=== PATIENT | female | born 1960 | race Caucasian/White ===

== ENCOUNTER 2016-12-22 15:03 | Inpatient (IN) | payer MEDICARE, MEDICAID ==
[2016-12-22] MEDS ORDERED: Haloperidol INJ IV/IM* 5 MG/ML AMP IV ONE (15:14)
[2016-12-22] MEDS ORDERED: LORazepam INJ* 2 MG/ML 1 ML VIAL IV PUSH ONE (15:16)
[2016-12-22 15:35] LABS: Hematocrit 47 % (35-47); Hemoglobin 15.5 g/dl (12.0-16.0); Mean Corpuscular HGB Conc 33 g/dl (31-36); Mean Corpuscular Hemoglobin 30 pg (27-31); Mean Corpuscular Volume 92 fL (80-97); Mean Platelet Volume 9 um3 (7.4-10.4); Red Blood Count 5.11 10^6/ul (4.0-5.4); Red Cell Distribution Width 14 % (10.5-15); White Blood Count 8.2 10^3/ul (3.5-10.8)
[2016-12-22 15:41] LABS: Urine Bacteria Absent (Absent); Urine Bilirubin Negative (Negative); Urine Glucose 1+(50 mg/dL) (Negative); Urine Nitrite Negative (Negative)
--- NOTE | 2016-12-22 15:47 | RAD ---
Indication: Confusion, hemorrhage. CT of the brain was performed without IV contrast. Comparison is made with previous exam dated June 16, 2016. Ventricular structures are midline. No midline shift is noted. The extraction spaces are unremarkable. There is no evidence of intracranial mass or hemorrhage. No other high or low density lesions are identified. Mastoid air cells and paranasal sinuses are otherwise unremarkable. IMPRESSION: NO INTRACRANIAL MASS OR HEMORRHAGE IS NOTED.
[2016-12-22 15:50] LABS: Benzodiazepine Urine Screen None Detected (None Detect)
[2016-12-22 15:51] LABS: ALT 7 U/L (7-52); AST 11 U/L (13-39); Albumin 4.4 g/dL (3.2-5.2); Alkaline Phosphatase 66 U/L (34-104); Anion Gap 16 mmol/L (2-11); BUN/Creatinine Ratio 52.6 (8-20); Blood Urea Nitrogen 41 mg/dL (6-24); CO2 Carbon Dioxide 22 mmol/L (22-32); Calcium 10.3 mg/dL (8.6-10.3); Chloride 106 mmol/L (101-111); Creatine Kinase 25 U/L (10-223); EGFR African American 97.9 (>60); EGFR Non-African American 76.1 (>60); Globulin 3.9 g/dL (2-4); Glucose 85 mg/dL (70-100); Magnesium 2.6 mg/dL (1.9-2.7); Potassium 4.2 mmol/L (3.5-5.0); Sodium 144 mmol/L (133-145); Total Protein 8.3 g/dL (6.4-8.9)
[2016-12-22 15:52] LABS: Troponin I 0.01 ng/mL (<0.04)
[2016-12-22 15:58] LABS: Acetaminophen < 15 mcg/mL; Alcohol < 10 mg/dL (<10); Salicylate < 2.50 mg/dL (<30)
--- NOTE | 2016-12-22 16:03 | RAD ---
HISTORY: Altered mental status COMPARISONS: June 26, 2016 VIEWS:1: Single frontal portable view of the chest at 3:40 PM FINDINGS: LINES AND TUBES: None. CARDIOMEDIASTINAL SILHOUETTE: The cardiomediastinal silhouette is normal for portable technique. PLEURA: The costophrenic angles are sharp. No pleural abnormalities are noted. LUNG PARENCHYMA: There is hyperinflation. ABDOMEN: The upper abdomen is clear. There is no subphrenic gas. BONES AND SOFT TISSUES: No bone or soft tissue abnormalities are noted. IMPRESSION: HYPERINFLATION. NO ACTIVE CARDIOPULMONARY DISEASE.
[2016-12-22 16:05] LABS: TSH (Thyroid Stimulating Horm) 1.83 mcIU/mL (0.34-5.60)
[2016-12-22] MEDS: NS 0.9% 1000 ML* 2,000 ML IV ONE ×2 (17:03→17:05)
[2016-12-22] MEDS ORDERED: QUEtiapine TAB* 300 MG PO ONE (21:04)
[2016-12-22] MEDS ORDERED: buPROPion TAB* 100 MG PO ONE (21:06)
--- NOTE | 2016-12-22 21:58 | ED ---
April, DoctorChing, scribed for Kevin Stubbs MD on 12/22/16 at 1531 . Altered Mental Status - HPI Summary HPI Summary: 56 year old female brought to [facility] by EMS after her vp digital marketing social media and crm found her catatonic in bed. She has PMHx of PE and HLD, as well as Panic Disorder, Schizophrenia, and a previous suicide attempt. She currently should be taking Xarelto, Seroquel, Hyroxyzine, Zocor, and Asprin. She is a former smoker. Pt was crying uncontrollably and is a Level 5 Caveat. - History Of Current Complaint Chief Complaint: EDAltMentalStatus Stated Complaint: AMS Time Seen by Provider: 12/22/16 15:10 Hx Obtained From: EMS Hx From Patient Unobtainable Due To: Altered Mental Status - LEVEL 5 CAVEAT Onset/Duration: Unknown - Allergies/Home Medications Allergies/Adverse Reactions: Allergies Allergy/AdvReac Type Severity Reaction Status Date / Time No Known Allergies Allergy Verified 05/09/16 01:57 PMH/Surg Hx/FS Hx/Imm Hx Endocrine/Hematology History: Denies: Hx Anemia, Hx Unexplained Bleeding Cardiovascular History: Reports: Hx Deep Vein Thrombosis - 2000 and 2007 Denies: Hx Aneurysm, Hx Angina, Hx Angioplasty, Hx Auto Implanted Cardiovert Defib, Hx Cardiac Arrest, Hx Cardiomegaly, Hx Congenital Heart Disease, Hx Congestive Heart Failure, Hx Coronary Artery Disease, Hx Embolism, Hx Hypercholesterolemia, Hx Hypotension, Hx Hypertension, Hx Pacemaker/ICD, Hx Peripheral Vascular Disease, Hx Rheumatic Fever, Hx Syncope, Hx Valvular Heart Disease, Other Cardiovascular Problems/Disorders History: Reports: Other Problems/Disorders - History of bladder infection Sensory History: Reports: Hx Contacts or Glasses Denies: Hx Hearing Aid Opthamlomology History: Reports: Hx Contacts or Glasses Neurological History: Reports: Other Neuro Impairments/Disorders - Recently hit head in ED after falling off a stretcher. Psychiatric History: Reports: Hx Panic Disorder, Hx Inpatient Treatment, Hx Community Mental Health Tx, Hx Schizophrenia, Hx Bipolar Disorder, Hx Suicide Attempt - 1982, Hx of Violent Episodes Against Others, Other Psychiatric Issues/ Disorders - SCHIZOAFFECTIVE D/O Denies: Hx Anxiety, Hx Attention Deficit Hyperactivity Disorder, Hx Eating Disorder, Hx Depression, Hx Post Traumatic Stress Disorder, Hx Substance Abuse - Surgical History Surgery Procedure, Year, and Place: TUMOR REMOVED FROM [place] Infectious Disease History: Yes Infectious Disease History: Denies: Traveled Outside the [place] in Last 30 Days - Family History Known Family History: Positive: Other - mood d/o, psychotic d/o. - Social History Lives: Alone Alcohol Use: None Alcohol Amount: States gave up long ago Hx Substance Use: No Substance Use Type: Reports: None Hx Tobacco Use: Yes Smoking Status (MU): Former Smoker Type: Cigarettes Amount Used/How Often: 3 CIGARETTES/DAY Length of Time of Smoking/Using Tobacco: 20YRS Have You Smoked in the Last Year: Yes Review of Systems - ROS Summary Review of Systems Summary: limited due to Level 5 Caveat Negative: Fever All Other Systems Reviewed And Are Negative: No Physical Exam - Summary Physical Exam Summary: LIMITED DUE TO LEVEL 5 CAVEAT General appearance: slight smell of gasoline HEENT: normocephalic, atraumatic, ears and nose without masses or lesions conjunctivae normal, pupils are equal, good gag reflex Neck: redness on right side of the neck, no lesions, symmetric without masses or tracheal deviation, no thyromegaly Chest: normal respiratory effort, clear to auscultation Cardiovascular: decreased skin turgor, good color, warmth, and capillary refill in extremities (2+), no peripheral edema Skin: no visible rashes, lesions, or ulcers, no cyanosis Musculoskeletal: no hip pain Neurological/Psychiatric: Rigid when moving, trouble following commands/ sitting up, non-verbal (crying uncontrollably) Triage Information Reviewed: Yes Vital Signs On Initial Exam: Initial Vitals Temp Pulse Resp BP Pulse Ox 98.1 F 95 16 132/106 95 12/22/16 15:07 12/22/16 15:07 12/22/16 15:07 12/22/16 15:07 12/22/16 15:07 Vital Signs Reviewed: Yes Diagnostics - Vital Signs Vital Signs Temp Pulse Resp BP Pulse Ox 12/22/16 15:09 98.1 F 95 20 132/106 95 12/22/16 15:07 98.1 F 95 16 132/106 95 - Laboratory Lab Results: Lab Results 12/22/16 12/22/16 12/22/16 Range/Units 15:15 15:15 15:15 WBC 8.2 (3.5-10.8) 10^3/ul RBC 5.11 (4.0-5.4) 10^6/ul Hgb 15.5 (12.0-16.0) g/dl Hct 47 (35-47) % MCV 92 (80-97) fL MCH 30 (27-31) pg MCHC 33 (31-36) g/dl RDW 14 (10.5-15) % Plt Count 402 (150-450) 10^3/ul MPV 9 (7.4-10.4) um3 Neut % (Auto) 71.3 (38-83) % Lymph % (Auto) 21.6 L (25-47) % [place] % (Auto) 6.2 (1-9) % Eos % (Auto) 0.1 (0-6) % Baso % (Auto) 0.8 (0-2) % Absolute Neuts (auto) 5.9 (1.5-7.7) 10^3/ul Absolute Lymphs (auto) 1.8 (1.0-4.8) 10^3/ul Absolute Monos (auto) 0.5 (0-0.8) 10^3/ul Absolute Eos (auto) 0 (0-0.6) 10^3/ul Absolute Basos (auto) 0.1 (0-0.2) 10^3/ul Absolute Nucleated RBC 0 10^3/ul Nucleated RBC % 0 INR (Anticoag Therapy) 0.90 (0.89-1.11) Sodium (133-145) mmol/L Potassium (3.5-5.0) mmol/L Chloride (101-111) mmol/L Carbon Dioxide (22-32) mmol/L Anion Gap (2-11) mmol/L BUN (6-24) mg/dL Creatinine (0.51-0.95) mg/dL Est GFR ( Amer) (>60) Est GFR (Non-Af Amer) (>60) BUN/Creatinine Ratio (8-20) Glucose (70-100) mg/dL Lactic Acid (0.5-2.0) mmol/L Calcium (8.6-10.3) mg/dL Magnesium (1.9-2.7) mg/dL Total Bilirubin (0.2-1.0) mg/dL AST (13-39) U/L ALT (7-52) U/L Alkaline Phosphatase (34-104) U/L Total Creatine Kinase (10-223) U/L Troponin I (<0.04) ng/mL Total Protein (6.4-8.9) g/dL Albumin (3.2-5.2) g/dL Globulin (2-4) g/dL Albumin/Globulin Ratio (1-3) TSH (0.34-5.60) mcIU/mL Urine Color Yellow Urine Appearance Clear Urine pH 6.0 (5-9) Ur Specific Parker 1.023 (1.010-1.030) Urine Protein 2+(100 mg/dl) H (Negative) Urine Ketones 2+ H (Negative) Urine Blood 1+ H (Negative) Urine Nitrate Negative (Negative) Urine Bilirubin Negative (Negative) Urine Urobilinogen Negative (Negative) Ur Leukocyte Esterase 1+ H (Negative) Urine WBC (Auto) 2+(11-20/hpf) H (Absent) Urine RBC (Auto) Trace(0-2/hpf) (Absent) Ur Squamous Epith Cells Present H (Absent) Urine Bacteria Absent (Absent) Urine Glucose 1+(50 mg/dl) H (Negative) Salicylates (<30) mg/dL Urine Opiates Screen (None Detect) Acetaminophen mcg/mL Ur Barbiturates Screen (None Detect) Ur Phencyclidine Scrn (None Detect) Ur Amphetamines Screen (None Detect) U Benzodiazepines Scrn (None Detect) Urine Cocaine Screen (None Detect) U Cannabinoids Screen (None Detect) Serum Alcohol (<10) mg/dL 12/22/16 12/22/16 12/22/16 Range/Units 15:15 15:15 15:15 WBC (3.5-10.8) 10^3/ul RBC (4.0-5.4) 10^6/ul Hgb (12.0-16.0) g/dl Hct (35-47) % MCV (80-97) fL MCH (27-31) pg MCHC (31-36) g/dl RDW (10.5-15) % Plt Count (150-450) 10^3/ul MPV (7.4-10.4) um3 Neut % (Auto) (38-83) % Lymph % (Auto) (25-47) % [place] % (Auto) (1-9) % Eos % (Auto) (0-6) % Baso % (Auto) (0-2) % Absolute Neuts (auto) (1.5-7.7) 10^3/ul Absolute Lymphs (auto) (1.0-4.8) 10^3/ul Absolute Monos (auto) (0-0.8) 10^3/ul Absolute Eos (auto) (0-0.6) 10^3/ul Absolute Basos (auto) (0-0.2) 10^3/ul Absolute Nucleated RBC 10^3/ul Nucleated RBC % INR (Anticoag Therapy) (0.89-1.11) Sodium 144 (133-145) mmol/L Potassium 4.2 (3.5-5.0) mmol/L Chloride 106 (101-111) mmol/L Carbon Dioxide 22 (22-32) mmol/L Anion Gap 16 H (2-11) mmol/L BUN 41 H (6-24) mg/dL Creatinine 0.78 (0.51-0.95) mg/dL Est GFR ( Amer) 97.9 (>60) Est GFR (Non-Af Amer) 76.1 (>60) BUN/Creatinine Ratio 52.6 H (8-20) Glucose 85 (70-100) mg/dL Lactic Acid 1.5 (0.5-2.0) mmol/L Calcium 10.3 (8.6-10.3) mg/dL Magnesium 2.6 (1.9-2.7) mg/dL Total Bilirubin 0.60 (0.2-1.0) mg/dL AST 11 L (13-39) U/L ALT 7 (7-52) U/L Alkaline Phosphatase 66 (34-104) U/L Total Creatine Kinase 25 (10-223) U/L Troponin I 0.01 (<0.04) ng/mL Total Protein 8.3 (6.4-8.9) g/dL Albumin 4.4 (3.2-5.2) g/dL Globulin 3.9 (2-4) g/dL Albumin/Globulin Ratio 1.1 (1-3) TSH 1.83 (0.34-5.60) mcIU/mL Urine Color Urine Appearance Urine pH (5-9) Ur Specific Parker (1.010-1.030) Urine Protein (Negative) Urine Ketones (Negative) Urine Blood (Negative) Urine Nitrate (Negative) Urine Bilirubin (Negative) Urine Urobilinogen (Negative) Ur Leukocyte Esterase (Negative) Urine WBC (Auto) (Absent) Urine RBC (Auto) (Absent) Ur Squamous Epith Cells (Absent) Urine Bacteria (Absent) Urine Glucose (Negative) Salicylates < 2.50 (<30) mg/dL Urine Opiates Screen None detected (None Detect) Acetaminophen < 15 mcg/mL Ur Barbiturates Screen None detected (None Detect) Ur Phencyclidine Scrn None detected (None Detect) Ur Amphetamines Screen None detected (None Detect) U Benzodiazepines Scrn None detected (None Detect) Urine Cocaine Screen None detected (None Detect) U Cannabinoids Screen None detected (None Detect) Serum Alcohol < 10 (<10) mg/dL Result Diagrams: 12/22/16 15:15 12/22/16 15:15 Lab Statement: Any lab studies that have been ordered have been reviewed, and results considered in the medical decision making process. - Radiology CXR Radiology Interpretation Completed By: Radiologist - IMPRESSION: HYPERINFLATION. NO ACTIVE CARDIOPULMONARY DISEASE. - CT Brain CT CT Interpretation Completed By: Radiologist - IMPRESSION: NO INTRACRANIAL MASS OR HEMORRHAGE IS NOTED. - EKG 15:08 Cardiac Rate: NL - 86 bpm EKG Rhythm: Sinus Rhythm ST Segment: Non-Specific - non-specific ST changes throughout EKG Interpretation: no atrial flutter, no STEMI Re-Evaluation - Re-Evaluation First Eval Re-Evaluation Time: 17:13 Change: Unchanged Comment: Pt clear for Mental Health Evaluation Altered Mental Statu Course/Dx - Course Course Of Treatment: 21:11 - pt will be in Flex until morning of 12/23/[address] Stubbs ordered evening medications. - Diagnoses Differential Diagnosis/HQI/PQRI: Intracranial Bleed, Medication Reaction, Metabolic Disorder, Postictal State, Other - pneumonia, uti Discharge Diagnoses: Acute psychosis Discharge - Discharge Plan Condition: Stable Disposition: OTHER Discharge Disposition Comment: pending reevaluation by psychiatry in the morning. Referrals: Jorge Marquez MD [Primary Care Provider] - The documentation as recorded by the Doctor meza Tahera accurately reflects the service I personally performed and the decisions made by , Kevin Stubbs MD.
[2016-12-22] MEDS ORDERED: QUEtiapine TAB* 100 MG PO ONE (22:35)
[2016-12-23] MEDS ORDERED: LORazepam INJ* 2 MG/ML 1 ML VIAL IM ONE (16:00)
[2016-12-23] MEDS: Enoxaparin(*) 100 MG/ML SYR SUBCUT SCH (16:20)
[2016-12-23] MEDS ORDERED: LORazepam INJ* 2 MG/ML 1 ML VIAL IM PRN (16:35)
[2016-12-23] MEDS: LORazepam TAB(*) 1 MG PO SCH (16:45)
[2016-12-23] MEDS ORDERED: Acetaminophen TAB* 325 MG ONE (18:49)
[2016-12-23] MEDS ORDERED: Al Hydrox/Mg Hydrox/Simet LIQ* 30 ML UDC ONE (18:50)
[2016-12-23] MEDS ORDERED: Al Hydrox/Mg Hydrox/Simet LIQ* 30 ML UDC PO ONE (20:00)
[2016-12-23] MEDS: Polyethylene Glycol 3350* 17 GM PACKET PO SCH (20:59)
[2016-12-23] MEDS ORDERED: Rivaroxaban TAB(*) 20 MG TAB PO ONE (21:10)
--- NOTE | 2016-12-23 21:49 | HP ---
HISTORY AND PHYSICAL: DATE OF ADMISSION: 12/23/16 IDENTIFYING DATA: Ms. Adorno is a 56-year-old mentally disabled female known to [facility] as well as other hospitals in the area for repeated psychiatric hospitalizations in the contex t of her mental illness with the diagnosis of schizophrenia, schizoaffective disorder and panic diso rder. At this time, the patient was sent to the emergency department by her social media intern who found her in a bed in a catatonic state, not eating or drinking for how long no one knows. In the emerge ncy department she was uncooperative and not responding to all forms of communications. CHIEF COMPLAINT: "Unresponsive to verbal commands and maintaining the same position for extended pe riod of time and not eating or drinking." HISTORY OF PRESENT ILLNESS: Due to patient's uncooperation and inability to answer any question it is difficult to get any history from the patient at this time, however, since she is known to all of us in the area and in this hospital, we will assume that her history remains the same as before. A t this time she is in a catatonic state, needing hospitalization either on psychiatric floor or if n eeded be transferred to medical floor for IV therapy. Since it is impossible for us to get any hist ory from the patient, I will refer everyone to review the previous complete psychiatric evaluation a s well as H and P done by Dr. Manjinder Baumann on 06/17/16. At that time, she had the diagnosis of schi zoaffective disorder depressed type as well as a medical diagnosis of bilateral pulmonary embolus, h istory of DVT, hyperlipidemia, hypokalemia and repeated genitourinary yeast infection. I have revie wed the physical examination done in the emergency department last night, also reviewed all the labs which are unremarkable. The labs include CBC with differential, urinalysis, comprehensive metaboli c profile and urinary toxicology screen. On CBC, her WBC count is 8.2, RBC 5.11, hemoglobin 15.5 wi th a hematocrit of 47, MCV 92 and platelet count 42,000. Differential count is within normal limits . Urinalysis shows a urine protein of +2, urine ketones 2+, urine blood 1+, rest of it is unremarka ble. Comprehensive metabolic profile shows sodium of 144, potassium 4.2, chloride 106, creatinine 0 .78, BUN 41 which is high. Rest of the report are unremarkable. Tox screen shows a salicylate level of less than 2.5, acetaminophen less than 15, serum alcohol less than 10. Urine drug screen negati ve for all street drugs. ASSESSMENT: 1. Catatonia. 2. Schizoaffective disorder. PLAN: 1. To admit the patient on psychiatric unit, and obtain a hospitalist consult to manage her physica l health conditions and especially anticoagulant therapy. For now, I will attempt to give her all h er p.o. medications if she can swallow, otherwise just wait for her to be more capable to swallow th e pills. 2. To treat her catatonia, I will add Ativan 1 mg IM 3 times a day preferably half an hour before e ach meal. If she does not come out of catatonia, I may have to request for a transfer to the medica l floor for IV hydration. She might even need nasogastric feeding in case she continues to withhold her nutritional intake. While on the unit, she will be monitored very closely, preferably put on on e-on-one status. Her code status will remain full. When stable enough psychiatrically, she will re ceive supportive milieu, individual and group therapy. [id number]/[facility] #: [id number]
[2016-12-24] MEDS ORDERED: Nicotine Inhaler* 10 MG AMP INH PRN (00:51)
[2016-12-24] MEDS ORDERED: Al Hydrox/Mg Hydrox/Simet LIQ* 30 ML UDC PO PRN (00:51)
[2016-12-24] MEDS ORDERED: Mouth Piece, Nicotine* 1 EACH CARTRIDGE INH SCH (00:51)
[2016-12-24] MEDS: Enoxaparin(*) 100 MG/ML SYR SUBCUT SCH ×2 (04:34→16:35)
[2016-12-24] MEDS: LORazepam TAB(*) 1 MG PO SCH ×3 (08:35→16:36)
[2016-12-24] MEDS: Polyethylene Glycol 3350* 17 GM PACKET PO SCH ×2 (09:07→20:21)
[2016-12-24] MEDS: Vitamin THERAPEUTIC TAB PO SCH (09:08)
[2016-12-24 12:49] LABS: BUN/Creatinine Ratio 52.9 (8-20); Calcium 9.1 mg/dL (8.6-10.3); EGFR African American 159.9 (>60); EGFR Non-African American 124.3 (>60); Potassium 2.9 mmol/L (3.5-5.0)
[2016-12-24] MEDS: Acetaminophen TAB* 325 MG PO PRN (12:49)
[2016-12-24] MEDS ORDERED: Potassium Chloride LIQUID* 20 MEQ PACKET PO ONE (13:36)
[2016-12-24] MEDS: QUEtiapine TAB* 100 MG PO SCH (20:21)
[2016-12-24] MEDS: Mirtazapine TAB* 15 MG PO SCH (20:21)
[2016-12-24] MEDS: buPROPion TAB* 75 MG PO SCH (20:21)
[2016-12-25] MEDS: Enoxaparin(*) 100 MG/ML SYR SUBCUT SCH ×2 (07:04→16:24)
[2016-12-25] MEDS: Acetaminophen TAB* 325 MG PO PRN (08:18)
[2016-12-25] MEDS: LORazepam TAB(*) 1 MG PO SCH ×3 (08:18→16:25)
[2016-12-25] MEDS: Aspirin Low Dose CHEW TAB* 81 MG PO SCH (08:27)
[2016-12-25] MEDS: Vitamin THERAPEUTIC TAB PO SCH (08:27)
[2016-12-25] MEDS: QUEtiapine TAB* 100 MG PO SCH ×2 (08:27→20:21)
[2016-12-25] MEDS: buPROPion TAB* 75 MG PO SCH ×2 (08:27→20:21)
[2016-12-25] MEDS: Polyethylene Glycol 3350* 17 GM PACKET PO SCH ×2 (08:35→20:21)
[2016-12-25 08:42] LABS: BUN/Creatinine Ratio 35.2 (8-20); Calcium 8.9 mg/dL (8.6-10.3); EGFR African American 149.7 (>60); EGFR Non-African American 116.4 (>60); Potassium 3.4 mmol/L (3.5-5.0)
--- NOTE | 2016-12-25 10:54 | PN ---
Subjective - Subjective Service Type: 48565 Hosp care 15 min low complexity Subjective: Marielena initially had no spontaneous comments. She denied distress, and asked about her prognosis and medicine plan. She said she would take medication, and try to keep her food/liquid intake going. She acknowledged cutting herself on the neck recently. Objective - Appearance Appearance: Well Developed/Nourished Dysmorphic Features: No Hygiene: Normal Grooming: Disheveled - Behavior Psychomotor Activities: Abnormal-Decreased - Attitude and Relatedness Attitude and Relatedness: Withdrawn Eye Contact: Poor - Speech Quality: Unpressured Latencies: Long Quantity: Terse - Mood Patient's Decription of Mood: "Okay" - Affect Observed Affect: Unvariable Affect Consistent with: Dysphoria - Thought Process Patient's Thought Process: Impoverished - blocked Thought Content: No Passive Wish, No Suicidal Planning, No Homicidal Ideation, No Paranoid Ideation - Sensorium Experiencing Hallucinations: No, Sensorium is Clear - Level of Consciousness Level of Consciousness: Lethargic - Impulse Control Impulse Control: Intact - Insight and Judgement Insight and Judgement: Poor Assessment - Assessment Merits Inpatient Hospitalization: For Immediate Safety, For Stabilization, To Initiate Treatment, For Ongoing Evaluation, Pending Safe DC Plan Inpatient DSM-IV Dx: Schizoaffective disorder. Catatonia Clinical Impression: 56-year-old female with historic diagnosis of schizoaffective disorder, personality disorder traits, multiple prior psychiatric hospitalizations, a remote history of suicide attempts, and history of violence. On her last psychiatric hospitalization she had incapacitating lethargy or catatonia and eventually went to a care home. On this occasion concern centered again on apparent catatonia and mutism. Additionally she had scrapes/superfical lacerations on her neck. Continues with some mutism, severe psychomotor retardation. Distress level is low. Medmgt. is with Wellbutrin, Remeron, Quetiapine, and Ativan for catatonia - complication has been her not taking pills. Medical issues (anticoagulation, electrolytes, nutrition) are being evaluated by hospitalist (discussed with Dr. Justin 12/25). Plan - Plan Treatment Plan: Name: MARIELENA LUKE Birthdate: 1960 [id number] Continued Medication Management: Continue Outpt Medication Medications: Current Medications Acetaminophen (Tylenol Tab*) 650 mg PO Q4H PRN PRN Reason: PAIN/HEADACHE Last Admin: 12/25/16 08:18 Dose: 650 mg Al Hydrox/Mg Hydrox/Simethicone (Maalox Plus*) 30 ml PO Q4H PRN PRN Reason: INDIGESTION Aspirin (Aspirin Low Dose Tab*) 81 mg PO DAILY [facility] Last Admin: 12/25/16 08:27 Dose: 81 mg Bupropion HCl (Wellbutrin Tab*) 150 mg PO BID [facility] Last Admin: 12/25/16 08:27 Dose: 150 mg Device (Nicotine Mouth Piece*) 1 each INH .CARTRIDGE [facility] Enoxaparin Sodium (Lovenox(*)) 85 mg SUBCUT Q12H [facility] Last Admin: 12/25/16 07:04 Dose: 85 mg Lorazepam (Ativan Tab(*)) 1 mg PO AC [facility] Last Admin: 12/25/16 08:18 Dose: 1 mg Lorazepam (Ativan Inj*) 1 mg IM AC PRN PRN Reason: IF PT PREFERS Last Admin: 12/24/16 08:21 Dose: 1 mg Mirtazapine (Remeron Tab*) 15 mg PO BEDTIME [facility] Last Admin: 12/24/16 20:21 Dose: 15 mg Multivitamins (Theragran Tab*) 1 tab PO DAILY [facility] Last Admin: 12/25/16 08:27 Dose: 1 tab Nicotine (Nicotine Inhaler*) 10 mg INH Q2H PRN PRN Reason: CRAVING Polyethylene Glycol/Electrolytes (Miralax*) 17 gm PO Q12H [facility] Last Admin: 12/25/16 08:35 Dose: 17 gm Quetiapine Fumarate (Seroquel Tab*) 400 mg PO BID [facility] Last Admin: 12/25/16 08:27 Dose: 400 mg - Discharge Plan Discharge Plan: Outpatient Follow Up
[2016-12-25] MEDS ORDERED: Benzocaine/Menthol LOZ* 1 LOZENGE MT PRN (11:43)
[2016-12-25] MEDS ORDERED: Potassium Chlor TAB* 20 MEQ TAB.ER PO ONE (11:43)
[2016-12-25] MEDS: Nicotine GUM* 2 MG PO PRN (12:06)
[2016-12-25] MEDS: Mirtazapine TAB* 15 MG PO SCH (20:21)
--- NOTE | 2016-12-25 21:22 | CONS ---
CONSULTATION REPORT: DATE OF CONSULT: 12/25/16 PRIMARY CARE PROVIDER: Dr. Marquez. REQUESTING PHYSICIAN FOR CONSULTATION: Ruy Macias MD ATTENDING PHYSICIAN WHILE IN THE HOSPITAL: Spenser Justin MD (report being dictated by Robert Muro NP). REASON FOR MEDICAL CONSULTATION: Medical management of comorbid medical conditions. HISTORY OF PRESENT ILLNESS: I refer you to Dr. Daniels's H and P dictated on the for further details. In short, Ms. Adorno presented to the behavioral services unit for unresponsive to verbal commands and maintaining the same position for an extended period of time without eating or drinking. The patient was admitted for catatonic state and was admitted for stabilization. She does carry history though of recent diagnosis in June of pulmonary embolism. In addition to this, has a history of DVT, hyperlipidemia. She has a history of schizoaffective disorder and depression and it was also noted that she was hypokalemic and because of these findings, we were asked to evaluate in consult. The is evaluated now in the behavioral services unit. She says she is feeling well. She is notably withdrawn. She denies any chest pain or shortness of breath. She says that her mouth feels dry. She denies any abdominal discomfort or any leg pain or calf pain at this point and denies having any chest discomfort. She does state that sometime it hurts to take a deep breath, but she attributes it to the fact that she was given sternal rubs to try to awaken her. She other than this complaint denying any further complaints but because of the history of the PEs and the fact that she does have a history of DVT and she was hypokalemic, we were asked to evaluate in consult. PAST MEDICAL HISTORY: Significant for: 1. PE. 2. DVT. 3. Hyperlipidemia. 4. Schizoaffective disorder. 5. Depression. PAST SURGICAL HISTORY: Not obtained at this time. CURRENT MEDICATIONS: Include: 1. Tylenol 650 mg p.o. every 4 hours as needed. 2. Maalox 30 cc p.o. every 4 hours as needed. 3. Aspirin 81 mg daily. 4. Wellbutrin 150 mg p.o. b.i.d. 5. Nicotine inhaler 10 mg inhaler every 2 hours as needed. 6. Multivitamin 1 tablet daily. 7. Remeron 15 mg at bedtime. 8. Ativan 1 mg p.o. before meals. 9. Lovenox 85 mg subcu q.12 hours. 10. Seroquel 400 mg p.o. b.i.d. 11. MiraLAX 17 g p.o. every 12 hours as needed. FAMILY HISTORY: Reviewed and essentially noncontributory. SOCIAL HISTORY: There was a history of smoking and alcohol use in the past. Her surrogate decision maker is her brother, Bernardo. REVIEW OF SYSTEMS: There is no documented fever. She denied having any significant weight change. There was no double vision. She denies having any ear discharge. There was no rhinorrhea. No sore throat. No thyroid enlargement. She denies having any chest pain with the exception when she takes a deep breath. No orthopnea. No nocturnal dyspnea. No abdominal pain. No nausea, no vomiting. No dysuria, no frequency. No seizure. No loss of consciousness. No pruritus and no skin ulceration. Review of 14 systems completed, all others negative. PHYSICAL EXAM: Reveals vital signs, blood pressure 105/70 with a pulse of 88, respirations 16, O2 sat 99%, and temperature was 97.0. General: At this time, Ms. Adorno is a 56-year-old female patient. She is sitting in the psychiatric milieu. She does not appear to be in any acute distress. HEENT: Head is atraumatic, normocephalic. Eyes: EOMs are intact. Sclerae anicteric and not pale. Neck: Supple. Throat: Oral mucosa appears to be moist. No oropharyngeal erythema. Heart: Sounds S1, S2. Regular rate and rhythm. No murmurs, rubs, or gallops. Lungs: Clear to auscultation. Abdomen: Soft, flat. Bowel sounds present. Extremities: Pulses 2+ throughout. She had no peripheral edema. Neurologically, she is awake and she is alert. Currently, she is withdrawn at times, but she is awake, alert and oriented x3. Skin: Grossly intact. DIAGNOSTIC STUDIES/ LAB DATA: WBC of 8.2, RBC of 5.11, hemoglobin 15.5, hematocrit 47, platelet count of 402. INR 0.90. Sodium 136, potassium 3.4, chloride of 104, bicarb 29, BUN 19, creatinine 0.54. Urine showed 2+ protein, 2 + ketones, 1+ blood, 1+ leukocyte esterase, 2+ wbc. Toxicology was negative. Microbiology report for urine was negative. She had CTA of the chest done in June 2016, which again revealed bilateral pulmonary arterial filling defects consistent with large bilateral pulmonary emboli. Old medical records were reviewed. ASSESSMENT AND PLAN: Ms. Adorno is a 56-year-old female patient that comes to the [facility] for catatonic state. Hospitalist service was asked to evaluate in consult. Recommendations at this point are: 1. Schizoaffective disorder with catatonia. I will defer the management of this to Dr. Macias and his team. 2. Hypokalemia. She was given supplementation and she was 2.9, she is now 3.4. We will continue with another 60 today of mEq. We will repeat her potassium in the morning. 3. History of pulmonary embolism. In discussion with the patient, she said she has not been taking her Xarelto for sometime. She is currently not exhibiting any sign of shortness of breath. She is not hypoxic on room air. I do not see any warranting of re-CTA'ing her chest. I do agree with continuing Lovenox 85 mg subcu q.12 hours and then possibly at discharge sending her back on Xarelto, but again we would need to assure that she would be taking this appropriately. 4. History of tobacco abuse. She did request nicotine gum, which I have given. 5. DVT prophylaxis. She is on therapeutic Lovenox. 6. Hyperlipidemia. She can follow with her primary. 7. Fluids, electrolytes and nutrition. I would recommend a regular diet. We will go ahead and replace potassium and then I would recommend trying to give the patient Boost t.i.d. minimally and then regular diet on top of this. 8. Code status. Full code. TIME SPENT: Time spent on the consult was 60 minutes; greater than half the time was spent [id number] with the patient going over the plan of care with the patient and the other half time was spent implementing the plan of care. I did discuss the plan of care with my attending, Dr. Justin. He is in agreement. ROBERT MURO NP CC: Ruy Macias MD; Dr. Marquez [id number][place] [place] [id number] [facility]
[2016-12-26] MEDS: Enoxaparin(*) 100 MG/ML SYR SUBCUT SCH ×2 (03:59→15:54)
[2016-12-26 07:23] LABS: BUN/Creatinine Ratio 29.4 (8-20); Calcium 8.8 mg/dL (8.6-10.3); EGFR African American 159.9 (>60); EGFR Non-African American 124.3 (>60); Potassium 4.4 mmol/L (3.5-5.0)
[2016-12-26] MEDS: LORazepam TAB(*) 1 MG PO SCH ×2 (07:46→11:54)
[2016-12-26] MEDS: Polyethylene Glycol 3350* 17 GM PACKET PO SCH ×2 (09:34→21:19)
[2016-12-26] MEDS: Aspirin Low Dose CHEW TAB* 81 MG PO SCH (09:34)
[2016-12-26] MEDS: Vitamin THERAPEUTIC TAB PO SCH (09:35)
[2016-12-26] MEDS: QUEtiapine TAB* 100 MG PO SCH ×2 (09:35→21:19)
[2016-12-26] MEDS: buPROPion TAB* 75 MG PO SCH ×2 (09:36→21:19)
[2016-12-26] MEDS: Nicotine GUM* 2 MG PO PRN ×2 (09:41→17:54)
[2016-12-26] MEDS: Acetaminophen TAB* 325 MG PO PRN (11:58)
--- NOTE | 2016-12-26 13:47 | PN ---
Subjective - Subjective Service Type: 18765 Hosp care 15 min low complexity Subjective: Ninoska appeared to be sleeping. Arousal took a little jiggle to her shoulder and repeated greetings. She was very lethargic, moaned a one word response. Objective - Appearance Appearance: Well Developed/Nourished Hygiene: Normal Grooming: Disheveled - Behavior Psychomotor Activities: Abnormal-Decreased - Attitude and Relatedness Attitude and Relatedness: Minimally Cooperative Eye Contact: Poor - Speech Quantity: Terse - Affect Observed Affect: Unvariable - Thought Process Patient's Thought Process: Impoverished - Level of Consciousness Level of Consciousness: Lethargic - Impulse Control Impulse Control: Intact - Insight and Judgement Insight and Judgement: Poor Assessment - Assessment Merits Inpatient Hospitalization: For Immediate Safety, To Initiate Treatment, For Ongoing Evaluation, For Discharge Planning, Pending Safe DC Plan Inpatient DSM-IV Dx: Schizoaffective disorder. Catatonia Clinical Impression: 56-year-old female with historic diagnosis of schizoaffective disorder, personality disorder traits, multiple prior psychiatric hospitalizations, a remote history of suicide attempts, and history of violence. On her last psychiatric hospitalization she had incapacitating lethargy or catatonia and eventually went to a [facility]. On this occasion concern centered again on apparent catatonia and mutism. Additionally she had scrapes/superfical lacerations on her neck. Has had mutism, severe psychomotor retardation. Distress level is low. Medmgt. is with Wellbutrin, Remeron, Quetiapine, and Ativan for catatonia - Today she appears sedated - may be from addition of Ativan will hold it, and reduce Seroquel dosing for now. Medical issues (anticoagulation, electrolytes, nutrition) are being evaluated by hospitalist (discussed with Dr. Justin 12/25). Plan - Plan Treatment Plan: Name: NINOSKA LUKE Birthdate: 1960 [id number] Continued Medication Management: Different Medication Medications: Current Medications Acetaminophen (Tylenol Tab*) 650 mg PO Q4H PRN PRN Reason: PAIN/HEADACHE Last Admin: 12/26/16 11:58 Dose: 650 mg Al Hydrox/Mg Hydrox/Simethicone (Maalox Plus*) 30 ml PO Q4H PRN PRN Reason: INDIGESTION Aspirin (Aspirin Low Dose Tab*) 81 mg PO DAILY [facility] Last Admin: 12/26/16 09:34 Dose: 81 mg Bupropion HCl (Wellbutrin Tab*) 150 mg PO BID [facility] Last Admin: 12/26/16 09:36 Dose: 150 mg Device (Nicotine Mouth Piece*) 1 each INH .CARTRIDGE [facility] Enoxaparin Sodium (Lovenox(*)) 85 mg SUBCUT Q12H [facility] Last Admin: 12/26/16 03:59 Dose: 85 mg Mirtazapine (Remeron Tab*) 15 mg PO BEDTIME [facility] Last Admin: 12/25/16 20:21 Dose: 15 mg Multivitamins (Theragran Tab*) 1 tab PO DAILY [facility] Last Admin: 12/26/16 09:35 Dose: 1 tab Nicotine (Nicotine Inhaler*) 10 mg INH Q2H PRN PRN Reason: CRAVING Nicotine Polacrilex (Nicotine Gum*) 2 mg PO Q2H PRN PRN Reason: CRAVING Last Admin: 12/26/16 09:41 Dose: 2 mg Polyethylene Glycol/Electrolytes (Miralax*) 17 gm PO Q12H [facility] Last Admin: 12/26/16 09:34 Dose: 17 gm Quetiapine Fumarate (Seroquel Tab*) 100 mg PO BID [facility] Throat Lozenges (Chloraseptic Sharri*) 1 sharri MT Q6H PRN PRN Reason: SORE THROAT - Discharge Plan Discharge Plan: Consider Longer Term Tx
--- NOTE | 2016-12-26 16:00 | PN ---
Subjective Date of Service: 12/26/16 Interval History: Patient was not examined. The nurses notes, labs and patients chart was reviewed. Objective Active Medications: Acetaminophen (Tylenol Tab*) 650 mg PO Q4H PRN PRN Reason: PAIN/HEADACHE Last Admin: 12/26/16 11:58 Dose: 650 mg Al Hydrox/Mg Hydrox/Simethicone (Maalox Plus*) 30 ml PO Q4H PRN PRN Reason: INDIGESTION Aspirin (Aspirin Low Dose Tab*) 81 mg PO DAILY [facility] Last Admin: 12/26/16 09:34 Dose: 81 mg Bupropion HCl (Wellbutrin Tab*) 150 mg PO BID [facility] Last Admin: 12/26/16 09:36 Dose: 150 mg Device (Nicotine Mouth Piece*) 1 each INH .CARTRIDGE ON LICENSE [facility] Enoxaparin Sodium (Lovenox(*)) 85 mg SUBCUT Q12H [facility] Last Admin: 12/26/16 03:59 Dose: 85 mg Mirtazapine (Remeron Tab*) 15 mg PO BEDTIME [facility] Last Admin: 12/25/16 20:21 Dose: 15 mg Multivitamins (Theragran Tab*) 1 tab PO DAILY [facility] Last Admin: 12/26/16 09:35 Dose: 1 tab Nicotine (Nicotine Inhaler*) 10 mg INH Q2H PRN PRN Reason: CRAVING Nicotine Polacrilex (Nicotine Gum*) 2 mg PO Q2H PRN PRN Reason: CRAVING Last Admin: 12/26/16 09:41 Dose: 2 mg Polyethylene Glycol/Electrolytes (Miralax*) 17 gm PO Q12H [facility] Last Admin: 12/26/16 09:34 Dose: 17 gm Quetiapine Fumarate (Seroquel Tab*) 100 mg PO BID [facility] Throat Lozenges (Chloraseptic Sharri*) 1 sharri MT Q6H PRN PRN Reason: SORE THROAT Vital Signs 12/25/16 12/25/16 12/26/16 16:25 18:25 07:46 Temperature Pulse Rate Respiratory 16 16 16 Rate Blood Pressure (mmHg) O2 Sat by Pulse Oximetry 12/26/16 12/26/16 12/26/16 09:46 11:54 13:54 Temperature Pulse Rate Respiratory 16 16 16 Rate Blood Pressure (mmHg) O2 Sat by Pulse Oximetry 12/26/16 12/26/16 14:37 15:22 Temperature 97.5 F Pulse Rate 99 Respiratory 16 16 Rate Blood Pressure 87/57 (mmHg) O2 Sat by Pulse 95 Oximetry Result Diagrams: 12/22/16 15:15 12/26/16 06:44 Additional Lab and Data: Lab Results 12/22/16 12/22/16 12/22/16 Range/Units 15:15 15:15 15:15 WBC 8.2 (3.5-10.8) 10^3/ul RBC 5.11 (4.0-5.4) 10^6/ul Hgb 15.5 (12.0-16.0) g/dl Hct 47 (35-47) % MCV 92 (80-97) fL MCH 30 (27-31) pg MCHC 33 (31-36) g/dl RDW 14 (10.5-15) % Plt Count 402 (150-450) 10^3/ul MPV 9 (7.4-10.4) um3 Neut % (Auto) 71.3 (38-83) % Lymph % (Auto) 21.6 L (25-47) % [place] % (Auto) 6.2 (1-9) % Eos % (Auto) 0.1 (0-6) % Baso % (Auto) 0.8 (0-2) % Absolute Neuts (auto) 5.9 (1.5-7.7) 10^3/ul Absolute Lymphs (auto) 1.8 (1.0-4.8) 10^3/ul Absolute Monos (auto) 0.5 (0-0.8) 10^3/ul Absolute Eos (auto) 0 (0-0.6) 10^3/ul Absolute Basos (auto) 0.1 (0-0.2) 10^3/ul Absolute Nucleated RBC 0 10^3/ul Nucleated RBC % 0 INR (Anticoag Therapy) 0.90 (0.89-1.11) Sodium (133-145) mmol/L Potassium (3.5-5.0) mmol/L Chloride (101-111) mmol/L Carbon Dioxide (22-32) mmol/L Anion Gap (2-11) mmol/L BUN (6-24) mg/dL Creatinine (0.51-0.95) mg/dL Est GFR ( Amer) (>60) Est GFR (Non-Af Amer) (>60) BUN/Creatinine Ratio (8-20) Glucose (70-100) mg/dL Lactic Acid (0.5-2.0) mmol/L Calcium (8.6-10.3) mg/dL Magnesium (1.9-2.7) mg/dL Total Bilirubin (0.2-1.0) mg/dL AST (13-39) U/L ALT (7-52) U/L Alkaline Phosphatase (34-104) U/L Total Creatine Kinase (10-223) U/L Troponin I (<0.04) ng/mL Total Protein (6.4-8.9) g/dL Albumin (3.2-5.2) g/dL Globulin (2-4) g/dL Albumin/Globulin Ratio (1-3) TSH (0.34-5.60) mcIU/mL Urine Color Yellow Urine Appearance Clear Urine pH 6.0 (5-9) Ur Specific [place] 1.023 (1.010-1.030) Urine Protein 2+(100 mg/dl) H (Negative) Urine Ketones 2+ H (Negative) Urine Blood 1+ H (Negative) Urine Nitrate Negative (Negative) Urine Bilirubin Negative (Negative) Urine Urobilinogen Negative (Negative) Ur Leukocyte Esterase 1+ H (Negative) Urine WBC (Auto) 2+(11-20/hpf) H (Absent) Urine RBC (Auto) Trace(0-2/hpf) (Absent) Ur Squamous Epith Cells Present H (Absent) Urine Bacteria Absent (Absent) Urine Glucose 1+(50 mg/dl) H (Negative) Salicylates (<30) mg/dL Urine Opiates Screen (None Detect) Acetaminophen mcg/mL Ur Barbiturates Screen (None Detect) Ur Phencyclidine Scrn (None Detect) Ur Amphetamines Screen (None Detect) U Benzodiazepines Scrn (None Detect) Urine Cocaine Screen (None Detect) U Cannabinoids Screen (None Detect) Serum Alcohol (<10) mg/dL 12/22/16 12/22/16 12/22/16 Range/Units 15:15 15:15 15:15 WBC (3.5-10.8) 10^3/ul RBC (4.0-5.4) 10^6/ul Hgb (12.0-16.0) g/dl Hct (35-47) % MCV (80-97) fL MCH (27-31) pg MCHC (31-36) g/dl RDW (10.5-15) % Plt Count (150-450) 10^3/ul MPV (7.4-10.4) um3 Neut % (Auto) (38-83) % Lymph % (Auto) (25-47) % [place] % (Auto) (1-9) % Eos % (Auto) (0-6) % Baso % (Auto) (0-2) % Absolute Neuts (auto) (1.5-7.7) 10^3/ul Absolute Lymphs (auto) (1.0-4.8) 10^3/ul Absolute Monos (auto) (0-0.8) 10^3/ul Absolute Eos (auto) (0-0.6) 10^3/ul Absolute Basos (auto) (0-0.2) 10^3/ul Absolute Nucleated RBC 10^3/ul Nucleated RBC % INR (Anticoag Therapy) (0.89-1.11) Sodium 144 (133-145) mmol/L Potassium 4.2 (3.5-5.0) mmol/L Chloride 106 (101-111) mmol/L Carbon Dioxide 22 (22-32) mmol/L Anion Gap 16 H (2-11) mmol/L BUN 41 H (6-24) mg/dL Creatinine 0.78 (0.51-0.95) mg/dL Est GFR ( Amer) 97.9 (>60) Est GFR (Non-Af Amer) 76.1 (>60) BUN/Creatinine Ratio 52.6 H (8-20) Glucose 85 (70-100) mg/dL Lactic Acid 1.5 (0.5-2.0) mmol/L Calcium 10.3 (8.6-10.3) mg/dL Magnesium 2.6 (1.9-2.7) mg/dL Total Bilirubin 0.60 (0.2-1.0) mg/dL AST 11 L (13-39) U/L ALT 7 (7-52) U/L Alkaline Phosphatase 66 (34-104) U/L Total Creatine Kinase 25 (10-223) U/L Troponin I 0.01 (<0.04) ng/mL Total Protein 8.3 (6.4-8.9) g/dL Albumin 4.4 (3.2-5.2) g/dL Globulin 3.9 (2-4) g/dL Albumin/Globulin Ratio 1.1 (1-3) TSH 1.83 (0.34-5.60) mcIU/mL Urine Color Urine Appearance Urine pH (5-9) Ur Specific [place] (1.010-1.030) Urine Protein (Negative) Urine Ketones (Negative) Urine Blood (Negative) Urine Nitrate (Negative) Urine Bilirubin (Negative) Urine Urobilinogen (Negative) Ur Leukocyte Esterase (Negative) Urine WBC (Auto) (Absent) Urine RBC (Auto) (Absent) Ur Squamous Epith Cells (Absent) Urine Bacteria (Absent) Urine Glucose (Negative) Salicylates < 2.50 (<30) mg/dL Urine Opiates Screen None detected (None Detect) Acetaminophen < 15 mcg/mL Ur Barbiturates Screen None detected (None Detect) Ur Phencyclidine Scrn None detected (None Detect) Ur Amphetamines Screen None detected (None Detect) U Benzodiazepines Scrn None detected (None Detect) Urine Cocaine Screen None detected (None Detect) U Cannabinoids Screen None detected (None Detect) Serum Alcohol < 10 (<10) mg/dL Assess/Plan/Problems-Billing Assessment: 56 yo female with PMH of DVT, PEs, HLD and schizoaffective disorder who was admitted to the [facility] on 12/23 for catatonic state. Hospital Medicne was asked to evaluate for hx of PEs and hypokalemia - Patient Problems (1) Schizoaffective disorder, bipolar type Comment: Dispo per psych (2) Electrolyte abnormality Comment: - Resolved - recheck in am (3) Pulmonary emboli Comment: Bilateral PE on CTA dx 06/2016 in which she was started on xarelto. pt discontinued xarelto as outpt. TTE in 06/2016 showing no cor pulmonale - Plan to continue lovenox BID with recommednation for patient to go back on xarelto at discharge if she can take appropriately. (4) DVT prophylaxis Comment: Lovenox BID Status and Disposition: Inpatient in [facility]HU. Hospital Medicine will follow peripherally.
[2016-12-26] MEDS: Mirtazapine TAB* 15 MG PO SCH (21:19)
[2016-12-27] MEDS: Enoxaparin(*) 100 MG/ML SYR SUBCUT SCH ×2 (04:55→16:00)
[2016-12-27 07:22] LABS: EGFR African American 127.6 (>60); EGFR Non-African American 99.2 (>60)
[2016-12-27] MEDS: Polyethylene Glycol 3350* 17 GM PACKET PO SCH ×2 (10:41→21:09)
[2016-12-27] MEDS: Aspirin Low Dose CHEW TAB* 81 MG PO SCH (10:41)
[2016-12-27] MEDS: Vitamin THERAPEUTIC TAB PO SCH (10:41)
[2016-12-27] MEDS: QUEtiapine TAB* 100 MG PO SCH ×2 (10:50→21:09)
[2016-12-27] MEDS: buPROPion TAB* 75 MG PO SCH ×2 (10:50→21:09)
--- NOTE | 2016-12-27 10:57 | PN ---
Subjective - Subjective Service Type: 41933 Hosp care 15 min low complexity Subjective: Marielena was more alert, spoke more, and was actively engaged today. She said her neck scrapes were not in an effort to harm herself. She expressed a sincere preference for going home, with nursing support, rather than getting placed in SNF again. Objective - Appearance Appearance: Well Developed/Nourished Hygiene: Normal Grooming: Fairly Well Kept - Behavior Psychomotor Activities: Abnormal-Decreased - Attitude and Relatedness Attitude and Relatedness: Superficially Cooperative Eye Contact: Good - Speech Quality: Unpressured Latencies: Normal Quantity: Terse - Mood Patient's Decription of Mood: "Okay" - Affect Observed Affect: Non-labile Affect Consistent with: Dysphoria - Thought Process Patient's Thought Process: Coherent, Impoverished Thought Content: No Passive Wish, No Suicidal Planning, No Homicidal Ideation, No Paranoid Ideation - Sensorium Experiencing Hallucinations: No, Sensorium is Clear - Level of Consciousness Level of Consciousness: Alert - Impulse Control Impulse Control: Intact - Insight and Judgement Insight and Judgement: Poor Assessment - Assessment Merits Inpatient Hospitalization: For Stabilization, To Initiate Treatment, For Ongoing Evaluation, Consolidate Improvements, For Discharge Planning, Pending Safe DC Plan Inpatient DSM-IV Dx: Schizoaffective disorder. Catatonia Clinical Impression: 56-year-old female with historic diagnosis of schizoaffective disorder, personality disorder traits, multiple prior psychiatric hospitalizations, a remote history of suicide attempts, and history of violence. On her last psychiatric hospitalization she had incapacitating lethargy or catatonia and eventually went to a correction. On this occasion concern centered again on apparent catatonia and mutism. Additionally she had scrapes/superfical lacerations on her neck, which she later acknowledged was self inflicted. 1. Symptoms: Improving - more spontaneous and alert. Issue has been mutism, severe psychomotor retardation. Distress level remains low. She denied intent to harm self with her minor neck wounds. 2. Medication management: with Wellbutrin, Remeron, Quetiapine. Initially we provided Ativan for catatonia - but Marielena appeared quite sedated with it. Seroquel was reduced, Ativan stopped - she appears better. 3. Medical issues (anticoagulation, electrolytes, nutrition): have been evaluated by hospitalist - Marielena is stable. 4. Disposition planning - pt. would like to go home. For PT/OT assessments. Plan - Plan Treatment Plan: Name: MARIELENA LUKE Birthdate: 1960 [id number] Continued Medication Management: Continue Outpt Medication Medications: Current Medications Acetaminophen (Tylenol Tab*) 650 mg PO Q4H PRN PRN Reason: PAIN/HEADACHE Last Admin: 12/26/16 11:58 Dose: 650 mg Al Hydrox/Mg Hydrox/Simethicone (Maalox Plus*) 30 ml PO Q4H PRN PRN Reason: INDIGESTION Aspirin (Aspirin Low Dose Tab*) 81 mg PO DAILY [facility] Last Admin: 12/27/16 10:41 Dose: 81 mg Bupropion HCl (Wellbutrin Tab*) 150 mg PO BID [facility] Last Admin: 12/27/16 10:50 Dose: Not Given Device (Nicotine Mouth Piece*) 1 each INH .CARTRIDGE [facility] Enoxaparin Sodium (Lovenox(*)) 85 mg SUBCUT Q12H [facility] Last Admin: 12/27/16 04:55 Dose: 85 mg Mirtazapine (Remeron Tab*) 15 mg PO BEDTIME [facility] Last Admin: 12/26/16 21:19 Dose: 15 mg Multivitamins (Theragran Tab*) 1 tab PO DAILY [facility] Last Admin: 12/27/16 10:41 Dose: 1 tab Nicotine (Nicotine Inhaler*) 10 mg INH Q2H PRN PRN Reason: CRAVING Nicotine Polacrilex (Nicotine Gum*) 2 mg PO Q2H PRN PRN Reason: CRAVING Last Admin: 12/26/16 17:54 Dose: 2 mg Polyethylene Glycol/Electrolytes (Miralax*) 17 gm PO Q12H [facility] Last Admin: 12/27/16 10:41 Dose: 17 gm Quetiapine Fumarate (Seroquel Tab*) 100 mg PO BID [facility] Last Admin: 12/27/16 10:50 Dose: 100 mg Throat Lozenges (Chloraseptic [place]*) 1 [place] MT Q6H PRN PRN Reason: SORE THROAT - Discharge Plan Discharge Plan: Outpatient Follow Up
[2016-12-27] MEDS: Mirtazapine TAB* 15 MG PO SCH (21:09)
[2016-12-28] MEDS: Enoxaparin(*) 100 MG/ML SYR SUBCUT SCH ×2 (04:55→15:56)
[2016-12-28] MEDS: Aspirin Low Dose CHEW TAB* 81 MG PO SCH (10:47)
[2016-12-28] MEDS: Polyethylene Glycol 3350* 17 GM PACKET PO SCH ×2 (10:48→21:44)
[2016-12-28] MEDS: Vitamin THERAPEUTIC TAB PO SCH (10:48)
[2016-12-28] MEDS: buPROPion TAB* 75 MG PO SCH ×2 (10:48→21:44)
[2016-12-28] MEDS: QUEtiapine TAB* 100 MG PO SCH ×2 (10:48→21:44)
--- NOTE | 2016-12-28 11:38 | PN ---
Subjective - Subjective Service Type: 98096 Hosp care 15 min low complexity Subjective: Marielena appeared to be sleeping, did not arouse to voice or gentle touch. PT/OT could not engage her either. Objective - Appearance Appearance: Well Developed/Nourished Hygiene: Normal Grooming: Fairly Well Kept - Behavior Psychomotor Activities: Abnormal-Decreased - eylids are twitching bilaterally Exhibits Abnormal Movement: Yes - Attitude and Relatedness Attitude and Relatedness: uncooperative Assessment - Assessment Inpatient DSM-IV Dx: Schizoaffective disorder. Catatonia Clinical Impression: 56-year-old female with historic diagnosis of schizoaffective disorder, personality disorder traits, multiple prior psychiatric hospitalizations, a remote history of suicide attempts, and history of violence. On her last psychiatric hospitalization she had incapacitating lethargy or catatonia and eventually went to a halfway. On this occasion concern centered again on apparent catatonia and mutism. Additionally she had scrapes/superfical lacerations on her neck, which she later acknowledged was self inflicted. 1. Symptoms: Intermittent. Had been improving - appeared more spontaneous and alert. Issue continues with periodic mutism, severe psychomotor retardation, unresponsiveness. Distress level has been low. She denied intent to harm self with her minor neck wounds with which she presented. 2. Medication management: with Wellbutrin, Remeron, Quetiapine. Initially we provided Ativan for catatonia - but Marielena appeared quite sedated with it. Seroquel was reduced, Ativan stopped - she appears better. 3. Medical issues (anticoagulation, electrolytes, nutrition): have been evaluated by hospitalist - Marielena is stable. Given mental status changes and eye twitching, could consider partial complex seizures - EEG ordered today 12/28. 4. Disposition planning - pt. would like to go home. For PT/OT assessments. Plan - Plan Treatment Plan: Name: MARIELENA LUKE Birthdate: 1960 [id number] Continued Medication Management: Different Medication Medications: Current Medications Acetaminophen (Tylenol Tab*) 650 mg PO Q4H PRN PRN Reason: PAIN/HEADACHE Last Admin: 12/26/16 11:58 Dose: 650 mg Al Hydrox/Mg Hydrox/Simethicone (Maalox Plus*) 30 ml PO Q4H PRN PRN Reason: INDIGESTION Aspirin (Aspirin Low Dose Tab*) 81 mg PO DAILY [facility] Last Admin: 12/28/16 10:47 Dose: Not Given Bupropion HCl (Wellbutrin Tab*) 150 mg PO BID [facility] Last Admin: 12/28/16 10:48 Dose: Not Given Device (Nicotine Mouth Piece*) 1 each INH .CARTRIDGE [facility] Enoxaparin Sodium (Lovenox(*)) 85 mg SUBCUT Q12H [facility] Last Admin: 12/28/16 04:55 Dose: 85 mg Mirtazapine (Remeron Tab*) 15 mg PO BEDTIME [facility] Last Admin: 12/27/16 21:09 Dose: 15 mg Multivitamins (Theragran Tab*) 1 tab PO DAILY [facility] Last Admin: 12/28/16 10:48 Dose: Not Given Nicotine (Nicotine Inhaler*) 10 mg INH Q2H PRN PRN Reason: CRAVING Nicotine Polacrilex (Nicotine Gum*) 2 mg PO Q2H PRN PRN Reason: CRAVING Last Admin: 12/26/16 17:54 Dose: 2 mg Polyethylene Glycol/Electrolytes (Miralax*) 17 gm PO Q12H [facility] Last Admin: 12/28/16 10:48 Dose: Not Given Quetiapine Fumarate (Seroquel Tab*) 100 mg PO BID [facility] Last Admin: 12/28/16 10:48 Dose: Not Given Throat Lozenges (Chloraseptic Constanza*) 1 contsanza MT Q6H PRN PRN Reason: SORE THROAT - Discharge Plan Discharge Plan: Outpatient Follow Up
[2016-12-28 20:28] LABS: Hematocrit 39 % (35-47); Hemoglobin 12.9 g/dl (12.0-16.0); Mean Platelet Volume 9 um3 (7.4-10.4)
[2016-12-28 20:32] LABS: Comments Flag Yes
[2016-12-28] MEDS: Mirtazapine TAB* 15 MG PO SCH (21:44)
--- NOTE | 2016-12-29 02:19 | EEG ---
ELECTROENCEPHALOGRAPHY: DATE OF STUDY: 12/28/16 LOCATION: The patient is an inpatient on [address] [place] [address]. REQUESTING PHYSICIAN: Dr. Macias. HISTORY: This is a 56-year-old female with a history of catatonia and schizoaffective disorder. She was admitted on 12/23/16, and on admission, she was unresponsive to verbal commands and maintaining the same position for extended periods of time. EEG is requested for these mental status changes. EEG requested to evaluate for epileptiform abnormalities. MEDICATIONS: 1. Multivitamin. 2. Aspirin 81 mg. 3. Seroquel. 4. MiraLAX. 5. Remeron. 6. Wellbutrin. 7. Lovenox. DESCRIPTION: The waking background showed appropriate organization with clearly defined anterior to posterior voltage and frequency gradients. There was a very mildly slow posterior dominant rhythm of 8 Hz, which occasionally did reach the normal range of 8.5 Hz. Anteriorly, there was an expected pattern of lower voltage, irregular, mixed faster frequencies. There was excessive beta activity diffusely throughout the recording, which was sharply contoured, but not epileptiform in nature. Photic stimulation was performed and the response was unremarkable. Throughout the recording, there are no epileptiform discharges, focal features, paroxysmal features or significant interhemispheric asymmetries. IMPRESSION: This is a mildly abnormal waking EEG due to the presence of mildly slow background. These findings are suggestive of a mild, nonspecific, diffuse encephalopathy. Excess beta activity is an expected finding in the setting of certain medication such as benzodiazepines. [id number]/[facility] #: [id number] [facility]
[2016-12-29] MEDS: Enoxaparin(*) 100 MG/ML SYR SUBCUT SCH ×2 (05:49→15:43)
[2016-12-29] MEDS: Aspirin Low Dose CHEW TAB* 81 MG PO SCH (10:02)
[2016-12-29] MEDS: buPROPion TAB* 75 MG PO SCH ×2 (10:02→20:06)
[2016-12-29] MEDS: QUEtiapine TAB* 100 MG PO SCH ×2 (10:02→20:06)
[2016-12-29] MEDS: Polyethylene Glycol 3350* 17 GM PACKET PO SCH ×2 (10:02→20:06)
[2016-12-29] MEDS: Vitamin THERAPEUTIC TAB PO SCH (10:03)
[2016-12-29] MEDS ORDERED: LORazepam INJ* 2 MG/ML 1 ML VIAL IM ONE (13:44)
--- NOTE | 2016-12-29 16:05 | PN ---
Subjective - Subjective Subjective: Nursing staff reported today that the patient has not been eating/drinking responding since yesterday. Apparently the therapy department attempted to evaluate her but were unable to do so secondary to unresponsiveness. On examination, pt. demonstrated stupor, mutism, and negativism. Pressure applied to nail beds of fingers with no discernable response- pt would not open eyes to verbal command. Findings of assessment discussed with Dr. Mcgee. Ativan 2 mg IM X 1 administered. BMP was also ordered. Approximately 1 hour after administration, pt. had opened her eyes half way and appeared to be moving lips. Nursing staff informed me that clam bed laborer was unable to get a blood sample from the patient, and that another coroner forensic technician was being sent from the lab. Hospitalist service was re-consulted, and I spoke with Clarissa Hines NP who indicated that hospitalist service would follow-up. Continued catatonic symptoms discussed again with Dr. Mcgee- 2 mg of Ativan IM will be administered 4 hours after first dose, and if needed, 2 additional mg will be administered following that dose (hold parameters were given specific to respiratory rate- specifically, hold for respiratory rate less than 16 rpm.) . Objective - Appearance Dysmorphic Features: No Hygiene: Normal Grooming: Disheveled - Behavior Psychomotor Activities: Abnormal-Decreased Exhibits Abnormal Movement: No - Attitude and Relatedness Attitude and Relatedness: catatonic Eye Contact: Poor - eyes closed - Mood Patient's Decription of Mood: non-verbal - Affect Observed Affect: Constricted - Level of Consciousness Level of Consciousness: Lethargic - catatonic Assessment - Assessment Inpatient DSM-IV Dx: Schizoaffective disorder. Catatonia Plan - Plan Treatment Plan: Name: MARIELENA LUKE Birthdate: 1960 [id number] Medications: Current Medications Acetaminophen (Tylenol Tab*) 650 mg PO Q4H PRN PRN Reason: PAIN/HEADACHE Last Admin: 12/26/16 11:58 Dose: 650 mg Al Hydrox/Mg Hydrox/Simethicone (Maalox Plus*) 30 ml PO Q4H PRN PRN Reason: INDIGESTION Aspirin (Aspirin Low Dose Tab*) 81 mg PO DAILY [facility] Last Admin: 12/29/16 10:02 Dose: Not Given Bupropion HCl (Wellbutrin Tab*) 150 mg PO BID [facility] Last Admin: 12/29/16 10:02 Dose: Not Given Device (Nicotine Mouth Piece*) 1 each INH .CARTRIDGE [facility] Enoxaparin Sodium (Lovenox(*)) 85 mg SUBCUT Q12H [facility] Last Admin: 12/29/16 15:43 Dose: 85 mg Mirtazapine (Remeron Tab*) 15 mg PO BEDTIME [facility] Last Admin: 12/28/16 21:44 Dose: 15 mg Multivitamins (Theragran Tab*) 1 tab PO DAILY [facility] Last Admin: 12/29/16 10:03 Dose: Not Given Nicotine (Nicotine Inhaler*) 10 mg INH Q2H PRN PRN Reason: CRAVING Nicotine Polacrilex (Nicotine Gum*) 2 mg PO Q2H PRN PRN Reason: CRAVING Last Admin: 12/26/16 17:54 Dose: 2 mg Polyethylene Glycol/Electrolytes (Miralax*) 17 gm PO Q12H [facility] Last Admin: 12/29/16 10:02 Dose: Not Given Quetiapine Fumarate (Seroquel Tab*) 100 mg PO BID [facility] Last Admin: 12/29/16 10:02 Dose: Not Given Throat Lozenges (Chloraseptic Sharri*) 1 sharri MT Q6H PRN PRN Reason: SORE THROAT
[2016-12-29] MEDS ORDERED: Magnesium Hydroxide LIQ* 30 ML UDC PO ONE (17:00)
[2016-12-29 17:08] LABS: BUN/Creatinine Ratio 21.2 (8-20); Calcium 9.3 mg/dL (8.6-10.3); EGFR African American 118.7 (>60); EGFR Non-African American 92.3 (>60); Potassium 5.1 mmol/L (3.5-5.0)
[2016-12-29] MEDS: Acetaminophen TAB* 325 MG PO PRN (18:08)
[2016-12-29] MEDS: LORazepam INJ* 2 MG/ML 1 ML VIAL IM SCH ×2 (18:13→21:05)
--- NOTE | 2016-12-29 18:53 | PN ---
Subjective Date of Service: 12/29/16 Interval History: Patient seen from across the unit but limited examination. She is awake and observed ringing a tap escobar. No complaints at this time, but she is requesting a shower. Labs, nursing notes, and chart reviewed. Family History: Unchanged from Admission Social History: Unchanged from Admission Past Medical History: Unchanged from Admission Objective Active Medications: Acetaminophen (Tylenol Tab*) 650 mg PO Q4H PRN PRN Reason: PAIN/HEADACHE Last Admin: 12/29/16 18:08 Dose: 650 mg Al Hydrox/Mg Hydrox/Simethicone (Maalox Plus*) 30 ml PO Q4H PRN PRN Reason: INDIGESTION Aspirin (Aspirin Low Dose Tab*) 81 mg PO DAILY [facility] Last Admin: 12/29/16 10:02 Dose: Not Given Bupropion HCl (Wellbutrin Tab*) 150 mg PO BID [facility] Last Admin: 12/29/16 10:02 Dose: Not Given Device (Nicotine Mouth Piece*) 1 each INH .CARTRIDGE [facility] Enoxaparin Sodium (Lovenox(*)) 85 mg SUBCUT Q12H [facility] Last Admin: 12/29/16 15:43 Dose: 85 mg Lorazepam (Ativan Inj*) 2 mg IM Q4H [facility] Last Admin: 12/29/16 18:13 Dose: Not Given Mirtazapine (Remeron Tab*) 15 mg PO BEDTIME [facility] Last Admin: 12/28/16 21:44 Dose: 15 mg Multivitamins (Theragran Tab*) 1 tab PO DAILY [facility] Last Admin: 12/29/16 10:03 Dose: Not Given Nicotine (Nicotine Inhaler*) 10 mg INH Q2H PRN PRN Reason: CRAVING Nicotine Polacrilex (Nicotine Gum*) 2 mg PO Q2H PRN PRN Reason: CRAVING Last Admin: 12/26/16 17:54 Dose: 2 mg Polyethylene Glycol/Electrolytes (Miralax*) 17 gm PO Q12H [facility] Last Admin: 12/29/16 10:02 Dose: Not Given Quetiapine Fumarate (Seroquel Tab*) 100 mg PO BID [facility] Last Admin: 12/29/16 10:02 Dose: Not Given Throat Lozenges (Chloraseptic Sharri*) 1 sharri MT Q6H PRN PRN Reason: SORE THROAT Vital Signs 12/29/16 12/29/16 12/29/16 14:05 14:09 15:05 Respiratory 16 16 16 Rate Appearance: Disheveled female, appears more alert, does not appear catatonic Result Diagrams: 12/28/16 20:20 12/30/16 08:13 Additional Lab and Data: Lab Results 12/22/16 12/22/16 12/22/16 Range/Units 15:15 15:15 15:15 WBC 8.2 (3.5-10.8) 10^3/ul RBC 5.11 (4.0-5.4) 10^6/ul Hgb 15.5 (12.0-16.0) g/dl Hct 47 (35-47) % MCV 92 (80-97) fL MCH 30 (27-31) pg MCHC 33 (31-36) g/dl RDW 14 (10.5-15) % Plt Count 402 (150-450) 10^3/ul MPV 9 (7.4-10.4) um3 Neut % (Auto) 71.3 (38-83) % Lymph % (Auto) 21.6 L (25-47) % [place] % (Auto) 6.2 (1-9) % Eos % (Auto) 0.1 (0-6) % Baso % (Auto) 0.8 (0-2) % Absolute Neuts (auto) 5.9 (1.5-7.7) 10^3/ul Absolute Lymphs (auto) 1.8 (1.0-4.8) 10^3/ul Absolute Monos (auto) 0.5 (0-0.8) 10^3/ul Absolute Eos (auto) 0 (0-0.6) 10^3/ul Absolute Basos (auto) 0.1 (0-0.2) 10^3/ul Absolute Nucleated RBC 0 10^3/ul Nucleated RBC % 0 INR (Anticoag Therapy) 0.90 (0.89-1.11) Sodium (133-145) mmol/L Potassium (3.5-5.0) mmol/L Chloride (101-111) mmol/L Carbon Dioxide (22-32) mmol/L Anion Gap (2-11) mmol/L BUN (6-24) mg/dL Creatinine (0.51-0.95) mg/dL Est GFR ( Amer) (>60) Est GFR (Non-Af Amer) (>60) BUN/Creatinine Ratio (8-20) Glucose (70-100) mg/dL Lactic Acid (0.5-2.0) mmol/L Calcium (8.6-10.3) mg/dL Magnesium (1.9-2.7) mg/dL Total Bilirubin (0.2-1.0) mg/dL AST (13-39) U/L ALT (7-52) U/L Alkaline Phosphatase (34-104) U/L Total Creatine Kinase (10-223) U/L Troponin I (<0.04) ng/mL Total Protein (6.4-8.9) g/dL Albumin (3.2-5.2) g/dL Globulin (2-4) g/dL Albumin/Globulin Ratio (1-3) TSH (0.34-5.60) mcIU/mL Urine Color Yellow Urine Appearance Clear Urine pH 6.0 (5-9) Ur Specific [place] 1.023 (1.010-1.030) Urine Protein 2+(100 mg/dl) H (Negative) Urine Ketones 2+ H (Negative) Urine Blood 1+ H (Negative) Urine Nitrate Negative (Negative) Urine Bilirubin Negative (Negative) Urine Urobilinogen Negative (Negative) Ur Leukocyte Esterase 1+ H (Negative) Urine WBC (Auto) 2+(11-20/hpf) H (Absent) Urine RBC (Auto) Trace(0-2/hpf) (Absent) Ur Squamous Epith Cells Present H (Absent) Urine Bacteria Absent (Absent) Urine Glucose 1+(50 mg/dl) H (Negative) Salicylates (<30) mg/dL Urine Opiates Screen (None Detect) Acetaminophen mcg/mL Ur Barbiturates Screen (None Detect) Ur Phencyclidine Scrn (None Detect) Ur Amphetamines Screen (None Detect) U Benzodiazepines Scrn (None Detect) Urine Cocaine Screen (None Detect) U Cannabinoids Screen (None Detect) Serum Alcohol (<10) mg/dL 12/22/16 12/22/16 12/22/16 Range/Units 15:15 15:15 15:15 WBC (3.5-10.8) 10^3/ul RBC (4.0-5.4) 10^6/ul Hgb (12.0-16.0) g/dl Hct (35-47) % MCV (80-97) fL MCH (27-31) pg MCHC (31-36) g/dl RDW (10.5-15) % Plt Count (150-450) 10^3/ul MPV (7.4-10.4) um3 Neut % (Auto) (38-83) % Lymph % (Auto) (25-47) % [place] % (Auto) (1-9) % Eos % (Auto) (0-6) % Baso % (Auto) (0-2) % Absolute Neuts (auto) (1.5-7.7) 10^3/ul Absolute Lymphs (auto) (1.0-4.8) 10^3/ul Absolute Monos (auto) (0-0.8) 10^3/ul Absolute Eos (auto) (0-0.6) 10^3/ul Absolute Basos (auto) (0-0.2) 10^3/ul Absolute Nucleated RBC 10^3/ul Nucleated RBC % INR (Anticoag Therapy) (0.89-1.11) Sodium 144 (133-145) mmol/L Potassium 4.2 (3.5-5.0) mmol/L Chloride 106 (101-111) mmol/L Carbon Dioxide 22 (22-32) mmol/L Anion Gap 16 H (2-11) mmol/L BUN 41 H (6-24) mg/dL Creatinine 0.78 (0.51-0.95) mg/dL Est GFR ( Amer) 97.9 (>60) Est GFR (Non-Af Amer) 76.1 (>60) BUN/Creatinine Ratio 52.6 H (8-20) Glucose 85 (70-100) mg/dL Lactic Acid 1.5 (0.5-2.0) mmol/L Calcium 10.3 (8.6-10.3) mg/dL Magnesium 2.6 (1.9-2.7) mg/dL Total Bilirubin 0.60 (0.2-1.0) mg/dL AST 11 L (13-39) U/L ALT 7 (7-52) U/L Alkaline Phosphatase 66 (34-104) U/L Total Creatine Kinase 25 (10-223) U/L Troponin I 0.01 (<0.04) ng/mL Total Protein 8.3 (6.4-8.9) g/dL Albumin 4.4 (3.2-5.2) g/dL Globulin 3.9 (2-4) g/dL Albumin/Globulin Ratio 1.1 (1-3) TSH 1.83 (0.34-5.60) mcIU/mL Urine Color Urine Appearance Urine pH (5-9) Ur Specific [place] (1.010-1.030) Urine Protein (Negative) Urine Ketones (Negative) Urine Blood (Negative) Urine Nitrate (Negative) Urine Bilirubin (Negative) Urine Urobilinogen (Negative) Ur Leukocyte Esterase (Negative) Urine WBC (Auto) (Absent) Urine RBC (Auto) (Absent) Ur Squamous Epith Cells (Absent) Urine Bacteria (Absent) Urine Glucose (Negative) Salicylates < 2.50 (<30) mg/dL Urine Opiates Screen None detected (None Detect) Acetaminophen < 15 mcg/mL Ur Barbiturates Screen None detected (None Detect) Ur Phencyclidine Scrn None detected (None Detect) Ur Amphetamines Screen None detected (None Detect) U Benzodiazepines Scrn None detected (None Detect) Urine Cocaine Screen None detected (None Detect) U Cannabinoids Screen None detected (None Detect) Serum Alcohol < 10 (<10) mg/dL Assess/Plan/Problems-Billing Assessment: 56 yo female with PMH of DVT, PEs, HLD and schizoaffective disorder who was admitted to the [facility]HU on 12/23 for catatonic state. Hospital Medicne was asked to evaluate for hx of PEs and hypokalemia - Patient Problems (1) Schizoaffective disorder, bipolar type Code(s): F25.0 - SCHIZOAFFECTIVE DISORDER, BIPOLAR TYPE Comment: Dispo per psych (2) Electrolyte abnormality Code(s): E87.8 - OTH DISORDERS OF ELECTROLYTE AND FLUID BALANCE, NEC Comment: Concern expressed for electrolyte abnormalities, as the patient has not been eating. Appears WNL. I do note a K+ of 5.1, which may be secondary to hemolysis. Will recheck BMP tomorrow. (3) DVT prophylaxis Code(s): PPC5625 - Comment: Lovenox BID Status and Disposition: Inpatient in MHU. Hospital Medicine will follow peripherally.
[2016-12-29] MEDS: Mirtazapine TAB* 15 MG PO SCH (20:06)
[2016-12-30] MEDS: LORazepam INJ* 2 MG/ML 1 ML VIAL IM SCH ×6 (02:00→20:58)
[2016-12-30] MEDS: Enoxaparin(*) 100 MG/ML SYR SUBCUT SCH ×2 (04:40→15:36)
[2016-12-30] MEDS: Aspirin Low Dose CHEW TAB* 81 MG PO SCH (09:50)
[2016-12-30] MEDS: buPROPion TAB* 75 MG PO SCH ×2 (09:50→20:03)
[2016-12-30] MEDS: Polyethylene Glycol 3350* 17 GM PACKET PO SCH ×2 (09:50→20:04)
[2016-12-30] MEDS: QUEtiapine TAB* 100 MG PO SCH ×2 (09:50→20:03)
[2016-12-30] MEDS: Vitamin THERAPEUTIC TAB PO SCH (09:50)
[2016-12-30 09:55] LABS: BUN/Creatinine Ratio 23.2 (8-20); Blood Urea Nitrogen 13 mg/dL (6-24); CO2 Carbon Dioxide 23 mmol/L (22-32); Calcium 8.7 mg/dL (8.6-10.3); Chloride 102 mmol/L (101-111); EGFR African American 143.5 (>60); EGFR Non-African American 111.6 (>60); Glucose 92 mg/dL (70-100); Sodium 133 mmol/L (133-145)
[2016-12-30] MEDS: Mirtazapine TAB* 15 MG PO SCH (20:03)
[2016-12-31] MEDS: LORazepam INJ* 2 MG/ML 1 ML VIAL IM SCH ×6 (02:23→22:42)
[2016-12-31] MEDS: Enoxaparin(*) 100 MG/ML SYR SUBCUT SCH ×2 (05:30→17:14)
[2016-12-31] MEDS: Polyethylene Glycol 3350* 17 GM PACKET PO SCH ×2 (09:30→21:24)
[2016-12-31] MEDS: Aspirin Low Dose CHEW TAB* 81 MG PO SCH (11:18)
[2016-12-31] MEDS: buPROPion TAB* 75 MG PO SCH ×2 (11:18→21:24)
[2016-12-31] MEDS: QUEtiapine TAB* 100 MG PO SCH ×2 (11:18→21:24)
[2016-12-31] MEDS: Vitamin THERAPEUTIC TAB PO SCH (11:19)
--- NOTE | 2016-12-31 15:31 | PN ---
Subjective - Subjective Subjective: Visited Marielena today for follow-up. When I asked if she had left her room to do things, she stated "we are in a hospital." I acknowledged this and suggested that perhaps she would participate in the activities and groups on the unit to which she stated "these people are a bunch of jackals and hyenas." Marielena is reporting "fair" sleep and appetite. Staff report that Marielena prefers to remain in her room. Case discussed with Dr. Serrato. Objective - Appearance Dysmorphic Features: No Hygiene: Normal Grooming: Disheveled - Behavior Psychomotor Activities: Normal Exhibits Abnormal Movement: No - Attitude and Relatedness Attitude and Relatedness: Dismissive Eye Contact: Poor - Speech Quality: Unpressured Latencies: Long Quantity: Terse - Mood Patient's Decription of Mood: "Terrible" - "because I'm here." - Affect Observed Affect: Labile Affect Consistent with: Dysphoria - Thought Process Patient's Thought Process: Coherent Thought Content: No Passive Wish, No Suicidal Planning - Denies, No Homicidal Ideation - Denies, No Paranoid Ideation - Sensorium Experiencing Hallucinations: No, Sensorium is Clear Type of Hallucinations: Visual: No - Denies, Auditory: No - Denies - Level of Consciousness Level of Consciousness: Alert Orientation: Yes Orientated to Place, Yes Orientated to Person, No Orientated to Time - Impulse Control Impulse Control: Tenuous - Insight and Judgement Insight and Judgement: Poor - Group Participation Particating in Group Activities: No Assessment - Assessment Inpatient DSM-IV Dx: Schizoaffective disorder. Catatonia Plan - Plan Treatment Plan: Name: MARIELENA LUKE Birthdate: 1960 [id number] Medications: Current Medications Acetaminophen (Tylenol Tab*) 650 mg PO Q4H PRN PRN Reason: PAIN/HEADACHE Last Admin: 12/29/16 18:08 Dose: 650 mg Al Hydrox/Mg Hydrox/Simethicone (Maalox Plus*) 30 ml PO Q4H PRN PRN Reason: INDIGESTION Aspirin (Aspirin Low Dose Tab*) 81 mg PO DAILY [facility] Last Admin: 12/31/16 11:18 Dose: Not Given Bupropion HCl (Wellbutrin Tab*) 150 mg PO BID [facility] Last Admin: 12/31/16 11:18 Dose: Not Given Device (Nicotine Mouth Piece*) 1 each INH .CARTRIDGE [facility] Enoxaparin Sodium (Lovenox(*)) 85 mg SUBCUT Q12H [facility] Last Admin: 12/31/16 05:30 Dose: 85 mg Lorazepam (Ativan Inj*) 2 mg IM Q4H [facility] Last Admin: 12/31/16 14:10 Dose: Not Given Mirtazapine (Remeron Tab*) 15 mg PO BEDTIME [facility] Last Admin: 12/30/16 20:03 Dose: 15 mg Multivitamins (Theragran Tab*) 1 tab PO DAILY [facility] Last Admin: 12/31/16 11:19 Dose: Not Given Nicotine (Nicotine Inhaler*) 10 mg INH Q2H PRN PRN Reason: CRAVING Nicotine Polacrilex (Nicotine Gum*) 2 mg PO Q2H PRN PRN Reason: CRAVING Last Admin: 12/26/16 17:54 Dose: 2 mg Polyethylene Glycol/Electrolytes (Miralax*) 17 gm PO Q12H [facility] Last Admin: 12/31/16 09:30 Dose: Not Given Quetiapine Fumarate (Seroquel Tab*) 100 mg PO BID [facility] Last Admin: 12/31/16 11:18 Dose: Not Given Throat Lozenges (Chloraseptic Constanza*) 1 constanza MT Q6H PRN PRN Reason: SORE THROAT
[2016-12-31] MEDS: Mirtazapine TAB* 15 MG PO SCH (21:24)
[2017-01-01] MEDS: LORazepam INJ* 2 MG/ML 1 ML VIAL IM SCH ×5 (02:07→16:59)
[2017-01-01] MEDS: Enoxaparin(*) 100 MG/ML SYR SUBCUT SCH ×4 (05:51→21:25)
[2017-01-01] MEDS: Polyethylene Glycol 3350* 17 GM PACKET PO SCH ×2 (10:21→21:15)
[2017-01-01] MEDS: buPROPion TAB* 75 MG PO SCH (10:21)
[2017-01-01] MEDS: Vitamin THERAPEUTIC TAB PO SCH (10:21)
[2017-01-01] MEDS: QUEtiapine TAB* 100 MG PO SCH ×2 (10:21→21:15)
[2017-01-01] MEDS: Aspirin Low Dose CHEW TAB* 81 MG PO SCH (10:21)
--- NOTE | 2017-01-01 15:22 | PN ---
Subjective - Subjective Service Type: 30326 Hosp care 15 min low complexity Subjective: The patient is seen along with RN, Kashif, in her room where she is found laying supine in bed and staring at the ceiling with her eyes fluttering. At first she is unresponsive but does eventually respond to verbal cues and she requests that we call the supervisor cutting department at her home, which is the [facility], in order to have them bring her some clothing. She similarly requests an increase in her quetiapine to 200mg PO TID. She is refusing bupropion. Objective - Appearance Appearance: Well Developed/Nourished Dysmorphic Features: No Hygiene: Normal Grooming: Disheveled - Behavior Psychomotor Activities: Abnormal-Decreased Exhibits Abnormal Movement: No - Attitude and Relatedness Attitude and Relatedness: Withdrawn Eye Contact: Fair - Speech Quality: Unpressured Latencies: Normal Quantity: Appropriate - Mood Patient's Decription of Mood: "Fine" - Affect Observed Affect: Constricted Affect Consistent with: Dysphoria - Thought Process Patient's Thought Process: Impoverished Thought Content: Yes Paranoid Ideation, No Passive Wish, No Suicidal Planning, No Homicidal Ideation - Sensorium Experiencing Hallucinations: No, Sensorium is Clear Type of Hallucinations: Visual: No, Auditory: No, Command: No - Level of Consciousness Level of Consciousness: Lethargic Orientation: Yes Intact, Yes Orientated to Time, Yes Orientated to Place, Yes Orientated to Person - Impulse Control Impulse Control: Poor - Insight and Judgement Insight and Judgement: Impaired - Group Participation Particating in Group Activities: No - Medication Management Medication Management Adherence: Partial Assessment - Assessment Merits Inpatient Hospitalization: For Immediate Safety, For Stabilization Inpatient DSM-IV Dx: Schizoaffective disorder. Catatonia Clinical Impression: 56 y.o. single, white female with a history of schizoaffective DO presents with catatonia and inability to care for herself. Plan - Plan Treatment Plan: Name: MARIELENA LUKE Birthdate: 1960 [id number] Will increase quetiapine to 200mg PO TID and discontinue bupropion, per her request. Will make lorazepam available, either IM or PO, for catatonia. Will need SNF rehab following psychiatric stabilization. Continued Medication Management: Different Medication Medications: Current Medications Acetaminophen (Tylenol Tab*) 650 mg PO Q4H PRN PRN Reason: PAIN/HEADACHE Last Admin: 12/29/16 18:08 Dose: 650 mg Al Hydrox/Mg Hydrox/Simethicone (Maalox Plus*) 30 ml PO Q4H PRN PRN Reason: INDIGESTION Aspirin (Aspirin Low Dose Tab*) 81 mg PO DAILY [facility] Last Admin: 01/01/17 10:21 Dose: Not Given Device (Nicotine Mouth Piece*) 1 each INH .CARTRIDGE [facility] Enoxaparin Sodium (Lovenox(*)) 85 mg SUBCUT Q12H [facility] Last Admin: 01/01/17 05:51 Dose: 85 mg Lorazepam (Ativan Inj*) 2 mg IM Q4H [facility] Last Admin: 01/01/17 14:20 Dose: Not Given Lorazepam (Ativan Tab(*)) 2 mg PO Q6H PRN PRN Reason: ANXIETY Mirtazapine (Remeron Tab*) 15 mg PO BEDTIME [facility] Last Admin: 12/31/16 21:24 Dose: Not Given Multivitamins (Theragran Tab*) 1 tab PO DAILY [facility] Last Admin: 01/01/17 10:21 Dose: Not Given Nicotine (Nicotine Inhaler*) 10 mg INH Q2H PRN PRN Reason: CRAVING Nicotine Polacrilex (Nicotine Gum*) 2 mg PO Q2H PRN PRN Reason: CRAVING Last Admin: 12/26/16 17:54 Dose: 2 mg Polyethylene Glycol/Electrolytes (Miralax*) 17 gm PO Q12H [facility] Last Admin: 01/01/17 10:21 Dose: Not Given Quetiapine Fumarate (Seroquel Tab*) 200 mg PO TID [facility] Throat Lozenges (Chloraseptic Sharri*) 1 sharri MT Q6H PRN PRN Reason: SORE THROAT - Discharge Plan Discharge Plan: Inpatient Hospitalization
[2017-01-01] MEDS: LORazepam TAB(*) 1 MG PO PRN (16:02)
[2017-01-01] MEDS: Mirtazapine TAB* 15 MG PO SCH (21:15)
[2017-01-02] MEDS: LORazepam INJ* 2 MG/ML 1 ML VIAL IM SCH ×7 (00:45→22:38)
[2017-01-02] MEDS: Enoxaparin(*) 100 MG/ML SYR SUBCUT SCH ×2 (05:00→16:01)
[2017-01-02] MEDS: QUEtiapine TAB* 100 MG PO SCH ×3 (10:29→20:09)
[2017-01-02] MEDS: Aspirin Low Dose CHEW TAB* 81 MG PO SCH (10:29)
[2017-01-02] MEDS: Vitamin THERAPEUTIC TAB PO SCH (10:30)
[2017-01-02] MEDS: Polyethylene Glycol 3350* 17 GM PACKET PO SCH ×2 (10:33→20:09)
--- NOTE | 2017-01-02 12:15 | PN ---
Subjective - Subjective Service Type: 19970 Hosp care 15 min low complexity Subjective: Marielena is sitting up in a chair today, makes good eye contact and smiles, saying "Hi Dr. Strange. How are you today?" She indicates that she is tolerating quetiapine well but still needs assistance in ambulating, dressing and bathing. She denies SI, HI, AH or VH. Objective - Appearance Appearance: Well Developed/Nourished Dysmorphic Features: No Hygiene: Normal Grooming: Fairly Well Kept - Behavior Psychomotor Activities: Abnormal-Decreased Exhibits Abnormal Movement: No - Attitude and Relatedness Attitude and Relatedness: Cooperative Eye Contact: Fair - Speech Quality: Unpressured Latencies: Normal Quantity: Appropriate - Mood Patient's Decription of Mood: "Okay" - Affect Observed Affect: Fair Affect Consistent with: Euthymia - Thought Process Patient's Thought Process: Coherent Thought Content: No Passive Wish, No Suicidal Planning, No Homicidal Ideation, No Paranoid Ideation - Sensorium Experiencing Hallucinations: No, Sensorium is Clear Type of Hallucinations: Visual: No, Auditory: No, Command: No - Level of Consciousness Level of Consciousness: Alert Orientation: Yes Intact, Yes Orientated to Time, Yes Orientated to Place, Yes Orientated to Person - Impulse Control Impulse Control: Tenuous - Insight and Judgement Insight and Judgement: Fair - Group Participation Particating in Group Activities: No - Medication Management Medication Management Adherence: Yes Assessment - Assessment Merits Inpatient Hospitalization: For Immediate Safety, For Stabilization Inpatient DSM-IV Dx: Schizoaffective disorder. Catatonia Clinical Impression: 56 y.o. single, white female with a history of schizoaffective DO presents with catatonia and inability to care for herself. Plan - Plan Treatment Plan: Name: MARIELENA LUKE Birthdate: 1960 [id number] Patient now taking quetiapine 200mg PO TID and prn lorazepam. Will need SNF rehab following psychiatric stabilization. Continued Medication Management: Continue Outpt Medication Medications: Current Medications Acetaminophen (Tylenol Tab*) 650 mg PO Q4H PRN PRN Reason: PAIN/HEADACHE Last Admin: 12/29/16 18:08 Dose: 650 mg Al Hydrox/Mg Hydrox/Simethicone (Maalox Plus*) 30 ml PO Q4H PRN PRN Reason: INDIGESTION Aspirin (Aspirin Low Dose Tab*) 81 mg PO DAILY [facility] Last Admin: 01/02/17 10:29 Dose: 81 mg Device (Nicotine Mouth Piece*) 1 each INH .CARTRIDGE [facility] Enoxaparin Sodium (Lovenox(*)) 85 mg SUBCUT Q12H [facility] Last Admin: 01/02/17 05:00 Dose: 85 mg Lorazepam (Ativan Inj*) 2 mg IM Q4H [facility] Last Admin: 01/02/17 10:52 Dose: Not Given Lorazepam (Ativan Tab(*)) 2 mg PO Q6H PRN PRN Reason: ANXIETY Last Admin: 01/01/17 16:02 Dose: 2 mg Mirtazapine (Remeron Tab*) 15 mg PO BEDTIME [facility] Last Admin: 01/01/17 21:15 Dose: 15 mg Multivitamins (Theragran Tab*) 1 tab PO DAILY [facility] Last Admin: 01/02/17 10:30 Dose: Not Given Nicotine (Nicotine Inhaler*) 10 mg INH Q2H PRN PRN Reason: CRAVING Nicotine Polacrilex (Nicotine Gum*) 2 mg PO Q2H PRN PRN Reason: CRAVING Last Admin: 12/26/16 17:54 Dose: 2 mg Polyethylene Glycol/Electrolytes (Miralax*) 17 gm PO Q12H [facility] Last Admin: 01/02/17 10:33 Dose: Not Given Quetiapine Fumarate (Seroquel Tab*) 200 mg PO TID [facility] Last Admin: 01/02/17 10:29 Dose: 200 mg Throat Lozenges (Chloraseptic Constanza*) 1 constanza MT Q6H PRN PRN Reason: SORE THROAT - Discharge Plan Discharge Plan: Inpatient Hospitalization
[2017-01-02] MEDS: LORazepam TAB(*) 1 MG PO PRN ×2 (13:19→18:42)
[2017-01-02] MEDS: Mirtazapine TAB* 15 MG PO SCH (20:09)
[2017-01-03] MEDS: LORazepam INJ* 2 MG/ML 1 ML VIAL IM SCH ×3 (02:00→13:37)
[2017-01-03] MEDS: Enoxaparin(*) 100 MG/ML SYR SUBCUT SCH (04:30)
[2017-01-03] MEDS: QUEtiapine TAB* 100 MG PO SCH ×3 (08:22→21:13)
[2017-01-03] MEDS: Polyethylene Glycol 3350* 17 GM PACKET PO SCH ×2 (08:22→21:13)
[2017-01-03] MEDS: Vitamin THERAPEUTIC TAB PO SCH (08:22)
[2017-01-03] MEDS: Aspirin Low Dose CHEW TAB* 81 MG PO SCH (08:23)
[2017-01-03] MEDS: LORazepam TAB(*) 1 MG PO PRN ×3 (08:28→21:13)
--- NOTE | 2017-01-03 13:18 | ED ---
Antonia Chen Janilya, scribed for Vincent Ventura MD on 12/23/16 at 1342 . Progress - Progress Note Progress Note: Dr. Daniels from psychiatry evaluated the pt. He will be admitted to his services. Pt is AxOx3 and hemodynamically stable. - Consult/PCP Time Called: 17:50 Re-Evaluation - Re-Evaluation First Eval Re-Evaluation Time: 17:13 Change: Unchanged Comment: Pt clear for Mental Health Evaluation Course/Dx - Course Course Of Treatment: 21:11 - pt will be in Flex until morning of 12/23/[address] Stubbs ordered evening medications. - Diagnoses Provider Diagnoses: Acute psychosis Discharge - Discharge Plan Condition: Stable Disposition: ADMITTED TO [facility] Referrals: Jorge Marquez MD [Primary Care Provider] - The documentation as recorded by the Antonia meza Janilya accurately reflects the service I personally performed and the decisions made by , Vincent Ventura MD.
--- NOTE | 2017-01-03 15:19 | PN ---
Subjective - Subjective Service Type: 41966 Hosp care 15 min low complexity Subjective: The patient is awake and alert, laying in bed. Would like bedtime dose of quetiapine increased to 300mg to help her sleep. Patient c/o lovenox injections and would like to be placed back on the Xarelto that she takes orally on an outpatient basis. She is needy with staff, requesting and receiving help with meals, bathing and toileting. She denies SI or HI and has no evidence of catatonia. Objective - Appearance Appearance: Well Developed/Nourished Dysmorphic Features: No Hygiene: Normal Grooming: Fairly Well Kept - Behavior Psychomotor Activities: Abnormal-Decreased Exhibits Abnormal Movement: No - Attitude and Relatedness Attitude and Relatedness: Cooperative Eye Contact: Good - Speech Quality: Unpressured Latencies: Normal Quantity: Appropriate - Mood Patient's Decription of Mood: "Okay" - Affect Observed Affect: Fair Affect Consistent with: Euthymia - Thought Process Patient's Thought Process: Coherent Thought Content: No Passive Wish, No Suicidal Planning, No Homicidal Ideation, No Paranoid Ideation - Sensorium Experiencing Hallucinations: No, Sensorium is Clear Type of Hallucinations: Visual: No, Auditory: No, Command: No - Level of Consciousness Level of Consciousness: Lethargic Orientation: Yes Intact, Yes Orientated to Time, Yes Orientated to Place, Yes Orientated to Person - Impulse Control Impulse Control: Tenuous - Insight and Judgement Insight and Judgement: Fair - Group Participation Particating in Group Activities: No - Medication Management Medication Management Adherence: Yes Assessment - Assessment Merits Inpatient Hospitalization: Consolidate Improvements, For Discharge Planning Inpatient DSM-IV Dx: Schizoaffective disorder. Catatonia Clinical Impression: 56 y.o. single, white female with a history of schizoaffective DO presents with catatonia and inability to care for herself. Plan - Plan Treatment Plan: Name: MARIELENA LUKE Birthdate: 1960 [id number] Patient now taking quetiapine 200mg PO TID and prn lorazepam. Will switch lovenox to oral Xarelto per patient's wishes. Will increase bedtime quetiapine to 300mg to improve sleep. Will need SNF rehab following psychiatric stabilization. Continued Medication Management: Different Medication Medications: Current Medications Acetaminophen (Tylenol Tab*) 650 mg PO Q4H PRN PRN Reason: PAIN/HEADACHE Last Admin: 12/29/16 18:08 Dose: 650 mg Al Hydrox/Mg Hydrox/Simethicone (Maalox Plus*) 30 ml PO Q4H PRN PRN Reason: INDIGESTION Aspirin (Aspirin Low Dose Tab*) 81 mg PO DAILY [facility] Last Admin: 01/03/17 08:23 Dose: 81 mg Device (Nicotine Mouth Piece*) 1 each INH .CARTRIDGE [facility] Lorazepam (Ativan Inj*) 2 mg IM Q4H [facility] Last Admin: 01/03/17 13:37 Dose: Not Given Lorazepam (Ativan Tab(*)) 2 mg PO Q6H PRN PRN Reason: ANXIETY Last Admin: 01/03/17 15:05 Dose: 2 mg Mirtazapine (Remeron Tab*) 15 mg PO BEDTIME [facility] Last Admin: 01/02/17 20:09 Dose: 15 mg Multivitamins (Theragran Tab*) 1 tab PO DAILY [facility] Last Admin: 01/03/17 08:22 Dose: 1 tab Nicotine (Nicotine Inhaler*) 10 mg INH Q2H PRN PRN Reason: CRAVING Nicotine Polacrilex (Nicotine Gum*) 2 mg PO Q2H PRN PRN Reason: CRAVING Last Admin: 12/26/16 17:54 Dose: 2 mg Polyethylene Glycol/Electrolytes (Miralax*) 17 gm PO Q12H [facility] Last Admin: 01/03/17 08:22 Dose: 17 gm Quetiapine Fumarate (Seroquel Tab*) 200 mg PO TID [facility] Last Admin: 01/03/17 13:34 Dose: 200 mg Rivaroxaban (Xarelto (*)) 20 mg PO DAILY [facility] Throat Lozenges (Chloraseptic Sharri*) 1 sharri MT Q6H PRN PRN Reason: SORE THROAT - Discharge Plan Discharge Plan: Inpatient Hospitalization
[2017-01-03] MEDS: Mirtazapine TAB* 15 MG PO SCH (21:13)
[2017-01-04] MEDS: LORazepam INJ* 2 MG/ML 1 ML VIAL IM SCH ×3 (00:28→17:49)
[2017-01-04] MEDS: Aspirin Low Dose CHEW TAB* 81 MG PO SCH (08:14)
[2017-01-04] MEDS: Polyethylene Glycol 3350* 17 GM PACKET PO SCH ×2 (08:14→21:12)
[2017-01-04] MEDS: Rivaroxaban TAB(*) 20 MG TAB PO SCH (08:14)
[2017-01-04] MEDS: QUEtiapine TAB* 100 MG PO SCH ×3 (08:15→21:11)
[2017-01-04] MEDS: Vitamin THERAPEUTIC TAB PO SCH (08:15)
[2017-01-04] MEDS: LORazepam TAB(*) 1 MG PO PRN ×2 (08:16→17:51)
[2017-01-04 08:54] VITALS: BP 115/71
[2017-01-04] MEDS ORDERED: Psyllium PAK PO PRN (13:04)
--- NOTE | 2017-01-04 13:11 | PN ---
Subjective - Subjective Service Type: 78645 Hosp care 15 min low complexity Subjective: The patient is mostly seclusive to her bedroom, finding it hard to get out of bed and attend to her own ADLs. She is otherwise calm, cooperative and responsive. She continues to c/o constipation and requests a trial of psylium. She denies SI or HI. Objective - Appearance Appearance: Well Developed/Nourished Dysmorphic Features: No Hygiene: Normal Grooming: Fairly Well Kept - Behavior Psychomotor Activities: Abnormal-Decreased Exhibits Abnormal Movement: No - Attitude and Relatedness Attitude and Relatedness: Cooperative Eye Contact: Good - Speech Quality: Unpressured Latencies: Normal Quantity: Appropriate - Mood Patient's Decription of Mood: "Okay" - Affect Observed Affect: Fair Affect Consistent with: Euthymia - Thought Process Patient's Thought Process: Coherent Thought Content: No Passive Wish, No Suicidal Planning, No Homicidal Ideation, No Paranoid Ideation - Sensorium Experiencing Hallucinations: No, Sensorium is Clear Type of Hallucinations: Visual: No, Auditory: No, Command: No - Level of Consciousness Level of Consciousness: Lethargic Orientation: Yes Intact, Yes Orientated to Time, Yes Orientated to Place, Yes Orientated to Person - Impulse Control Impulse Control: Tenuous - Insight and Judgement Insight and Judgement: Fair - Group Participation Particating in Group Activities: No - Medication Management Medication Management Adherence: Yes Assessment - Assessment Merits Inpatient Hospitalization: Consolidate Improvements, Pending Safe DC Plan Inpatient DSM-IV Dx: Schizoaffective disorder. Catatonia Clinical Impression: 56 y.o. single, white female with a history of schizoaffective DO presents with catatonia and inability to care for herself. Plan - Plan Treatment Plan: Name: MARIELENA LUKE Birthdate: 1960 [id number] Patient now taking quetiapine 200mg PO BID and 300mg PO qhs. The patient is appropriate for transfer to a facility that can provide short-term physical rehabilitation. Continued Medication Management: Continue Outpt Medication Medications: Current Medications Acetaminophen (Tylenol Tab*) 650 mg PO Q4H PRN PRN Reason: PAIN/HEADACHE Last Admin: 12/29/16 18:08 Dose: 650 mg Al Hydrox/Mg Hydrox/Simethicone (Maalox Plus*) 30 ml PO Q4H PRN PRN Reason: INDIGESTION Aspirin (Aspirin Low Dose Tab*) 81 mg PO DAILY [facility] Last Admin: 01/04/17 08:14 Dose: 81 mg Device (Nicotine Mouth Piece*) 1 each INH .CARTRIDGE [facility] Lorazepam (Ativan Inj*) 2 mg IM Q4H [facility] Last Admin: 01/04/17 10:26 Dose: Not Given Lorazepam (Ativan Tab(*)) 2 mg PO Q6H PRN PRN Reason: ANXIETY Last Admin: 01/04/17 08:16 Dose: 2 mg Mirtazapine (Remeron Tab*) 15 mg PO BEDTIME [facility] Last Admin: 01/03/17 21:13 Dose: 15 mg Multivitamins (Theragran Tab*) 1 tab PO DAILY [facility] Last Admin: 01/04/17 08:15 Dose: 1 tab Nicotine (Nicotine Inhaler*) 10 mg INH Q2H PRN PRN Reason: CRAVING Nicotine Polacrilex (Nicotine Gum*) 2 mg PO Q2H PRN PRN Reason: CRAVING Last Admin: 12/26/16 17:54 Dose: 2 mg Polyethylene Glycol/Electrolytes (Miralax*) 17 gm PO Q12H [facility] Last Admin: 01/04/17 08:14 Dose: 17 gm Psyllium Hydrophilic Mucilloid (Metamucil Dean*) 1 pkt PO DAILY PRN PRN Reason: CONSTIPATION Quetiapine Fumarate (Seroquel Tab*) 200 mg PO 0900,1400 [facility] Last Admin: 01/04/17 08:15 Dose: 200 mg Quetiapine Fumarate (Seroquel Tab*) 200 mg PO 2100 [facility] Last Admin: 01/03/17 21:13 Dose: 200 mg Rivaroxaban (Xarelto (*)) 20 mg PO DAILY [facility] Last Admin: 01/04/17 08:14 Dose: 20 mg Throat Lozenges (Chloraseptic Sharri*) 1 sharri MT Q6H PRN PRN Reason: SORE THROAT - Discharge Plan Discharge Plan: Outpatient Follow Up Outpatient Program: [facility]
[2017-01-04] MEDS: Mirtazapine TAB* 15 MG PO SCH (21:11)
[2017-01-05] MEDS: Aspirin Low Dose CHEW TAB* 81 MG PO SCH (09:01)
[2017-01-05] MEDS: QUEtiapine TAB* 100 MG PO SCH ×3 (09:02→20:42)
[2017-01-05] MEDS: Polyethylene Glycol 3350* 17 GM PACKET PO SCH ×2 (09:02→20:43)
[2017-01-05] MEDS: Vitamin THERAPEUTIC TAB PO SCH (09:02)
[2017-01-05] MEDS: Rivaroxaban TAB(*) 20 MG TAB PO SCH (09:02)
[2017-01-05] MEDS: LORazepam INJ* 2 MG/ML 1 ML VIAL IM SCH ×2 (10:01→13:58)
--- NOTE | 2017-01-05 15:36 | PN ---
Subjective - Subjective Service Type: 53717 Hosp care 15 min low complexity Subjective: The patient reports doing better and denies any acute complaints. I am informed by staff that her bed at [facility] subacute rehab is not available until January 08. Patient still requiring assistance with ADLs. Objective - Appearance Appearance: Well Developed/Nourished Dysmorphic Features: No Hygiene: Normal Grooming: Fairly Well Kept - Behavior Psychomotor Activities: Abnormal-Decreased Exhibits Abnormal Movement: No - Attitude and Relatedness Attitude and Relatedness: Cooperative Eye Contact: Fair - Speech Quality: Unpressured Latencies: Normal Quantity: Appropriate - Mood Patient's Decription of Mood: "Okay" - Affect Observed Affect: Fair Affect Consistent with: Euthymia - Thought Process Patient's Thought Process: Coherent Thought Content: No Passive Wish, No Suicidal Planning, No Homicidal Ideation, No Paranoid Ideation - Sensorium Experiencing Hallucinations: No, Sensorium is Clear Type of Hallucinations: Visual: No, Auditory: No, Command: No - Level of Consciousness Level of Consciousness: Alert Orientation: Yes Intact, Yes Orientated to Time, Yes Orientated to Place, Yes Orientated to Person - Impulse Control Impulse Control: Tenuous - Insight and Judgement Insight and Judgement: Fair - Group Participation Particating in Group Activities: No - Medication Management Medication Management Adherence: Yes Assessment - Assessment Merits Inpatient Hospitalization: Consolidate Improvements, Pending Safe DC Plan Inpatient DSM-IV Dx: Schizoaffective disorder. Catatonia Clinical Impression: 56 y.o. single, white female with a history of schizoaffective DO presents with catatonia and inability to care for herself. Plan - Plan Treatment Plan: Name: MARIELENA LUKE Birthdate: 1960 [id number] Patient now taking quetiapine 200mg PO BID and 300mg PO qhs. The patient is appropriate for transfer to [facility], a short-term physical rehabilitation facility, and will have an available bed there on January 08. Continued Medication Management: Different Medication Medications: Current Medications Acetaminophen (Tylenol Tab*) 650 mg PO Q4H PRN PRN Reason: PAIN/HEADACHE Last Admin: 12/29/16 18:08 Dose: 650 mg Al Hydrox/Mg Hydrox/Simethicone (Maalox Plus*) 30 ml PO Q4H PRN PRN Reason: INDIGESTION Aspirin (Aspirin Low Dose Tab*) 81 mg PO DAILY [facility] Last Admin: 01/05/17 09:01 Dose: 81 mg Device (Nicotine Mouth Piece*) 1 each INH .CARTRIDGE [facility] Lorazepam (Ativan Inj*) 2 mg IM Q4H [facility] Last Admin: 01/05/17 13:58 Dose: Not Given Lorazepam (Ativan Tab(*)) 2 mg PO Q6H PRN PRN Reason: ANXIETY Last Admin: 01/04/17 17:51 Dose: 2 mg Mirtazapine (Remeron Tab*) 15 mg PO BEDTIME [facility] Last Admin: 01/04/17 21:11 Dose: 15 mg Multivitamins (Theragran Tab*) 1 tab PO DAILY [facility] Last Admin: 01/05/17 09:02 Dose: 1 tab Nicotine (Nicotine Inhaler*) 10 mg INH Q2H PRN PRN Reason: CRAVING Nicotine Polacrilex (Nicotine Gum*) 2 mg PO Q2H PRN PRN Reason: CRAVING Last Admin: 12/26/16 17:54 Dose: 2 mg Polyethylene Glycol/Electrolytes (Miralax*) 17 gm PO Q12H [facility] Last Admin: 01/05/17 09:02 Dose: 17 gm Psyllium Hydrophilic Mucilloid (Metamucil Dean*) 1 pkt PO DAILY PRN PRN Reason: CONSTIPATION Last Admin: 01/05/17 09:04 Dose: 1 pkt Quetiapine Fumarate (Seroquel Tab*) 200 mg PO 0900,1400 [facility] Last Admin: 01/05/17 14:06 Dose: 200 mg Quetiapine Fumarate (Seroquel Tab*) 200 mg PO 2100 [facility] Last Admin: 01/04/17 21:11 Dose: 200 mg Rivaroxaban (Xarelto (*)) 20 mg PO DAILY [facility] Last Admin: 01/05/17 09:02 Dose: 20 mg Throat Lozenges (Chloraseptic Sharri*) 1 sharri MT Q6H PRN PRN Reason: SORE THROAT - Discharge Plan Discharge Plan: Outpatient Follow Up Outpatient Program: [facility]
[2017-01-05] MEDS: LORazepam TAB(*) 1 MG PO PRN (17:06)
[2017-01-05] MEDS: Mirtazapine TAB* 15 MG PO SCH (20:43)
[2017-01-06] MEDS: Polyethylene Glycol 3350* 17 GM PACKET PO SCH ×2 (09:48→20:19)
[2017-01-06] MEDS: Rivaroxaban TAB(*) 20 MG TAB PO SCH (09:48)
[2017-01-06] MEDS: Vitamin THERAPEUTIC TAB PO SCH (09:48)
[2017-01-06] MEDS: QUEtiapine TAB* 100 MG PO SCH ×3 (09:48→20:18)
[2017-01-06] MEDS: Aspirin Low Dose CHEW TAB* 81 MG PO SCH (09:49)
[2017-01-06] MEDS: LORazepam TAB(*) 1 MG PO PRN ×2 (14:08→20:21)
[2017-01-06] MEDS: Mirtazapine TAB* 15 MG PO SCH (20:19)
[2017-01-07] MEDS: LORazepam TAB(*) 1 MG PO PRN ×3 (04:44→21:09)
[2017-01-07] MEDS: LORazepam INJ* 2 MG/ML 1 ML VIAL IM SCH ×3 (07:03→07:10)
[2017-01-07] MEDS: Polyethylene Glycol 3350* 17 GM PACKET PO SCH ×2 (09:10→21:08)
[2017-01-07] MEDS: Aspirin Low Dose CHEW TAB* 81 MG PO SCH (09:10)
[2017-01-07] MEDS: Vitamin THERAPEUTIC TAB PO SCH (09:10)
[2017-01-07] MEDS: QUEtiapine TAB* 100 MG PO SCH ×3 (09:10→21:08)
[2017-01-07] MEDS: Rivaroxaban TAB(*) 20 MG TAB PO SCH (09:10)
[2017-01-07] MEDS ORDERED: Magnesium Hydroxide LIQ* 30 ML UDC PO ONE (11:18)
[2017-01-07] MEDS: Mirtazapine TAB* 15 MG PO SCH (21:08)
[2017-01-08] MEDS: LORazepam TAB(*) 1 MG PO PRN (09:37)
[2017-01-08] MEDS: QUEtiapine TAB* 100 MG PO SCH (09:38)
[2017-01-08] MEDS: Polyethylene Glycol 3350* 17 GM PACKET PO SCH (09:38)
[2017-01-08] MEDS: Vitamin THERAPEUTIC TAB PO SCH (09:38)
[2017-01-08] MEDS: Aspirin Low Dose CHEW TAB* 81 MG PO SCH (09:38)
[2017-01-08] MEDS: Rivaroxaban TAB(*) 20 MG TAB PO SCH (09:38)
--- NOTE | 2017-01-08 11:26 | DS ---
DATE OF ADMISSION: 12/23/2016. DATE OF DISCHARGE: 01/08/2017. DISCHARGE DIAGNOSES: AXIS I: Schizoaffective disorder, bipolar type. AXIS II: Chronic cluster B traits. AXIS III: History of DVT, history of pulmonary embolus, chronic constipation. AXIS IV: Severe, primary support stressors. AXIS V: At the time of admission was 30 and at the time of discharge is 60. CONDITION AT THE TIME OF DISCHARGE: Improved. The patient is no longer evidencing catatonic sympto ms. She is up, out of bed, eating, drinking, bathing with assistance. She denies suicidal or homic idal ideations. At this point, given the difficulties she is having with activities of daily living , we are recommending subacute rehab which she is agreeable with and will be following up with a tra nsfer to [facility]. The patient is in agreement with this plan. MENTAL STATUS EXAM AT THE TIME OF DISCHARGE: This is a middle-aged, white female who is sitting up in a wheelchair. She looks somewhat older than her stated age. She is calm, cooperative, makes good eye contact. Speech has normal rate, tone and volume and she is responding to questions appropriat karley. Mood is euthymic with a full affect. Thought process is linear and goal-directed. Thought co ntent is significant for her desire to be transferred to rehab. She denies suicidal or homicidal id eations. She denies auditory or visual hallucinations. Insight and judgment appear to be fair givi ng her willingness to follow-up with treatment in the community. Cognitively, she is awake and aler t with what appears to be an average intellect. DISCHARGE INSTRUCTIONS TO THE PATIENT: A. Medications: She takes aspirin 81 mg p.o. daily; Remeron 15 mg p.o. at bedtime; Seroquel 200 mg in the morning and in the afternoon, and 300 mg at night; Xa relto 20 mg p.o. daily; MiraLax 17 gm as needed for constipation; Psyllium one packet p.o. daily as a prn for constipation. B. Diet: Regular. C. Activities: As tolerated. The patient is offered nicotine replacement therapy on an ongoing ba sis; however, she declines this, indicating her desire to continue smoking at this time. There are no studies pending at the time of discharge. D. Follow-up care: The patient will be a direct transfer to the [facility] [place] subacute rehab facility where she will be receiving PT and OT services and hopefully restoring to independent living in the community. Thereafter, she will follow-up with [facility]. HOSPITAL COURSE - PART A: Reason for admission: The patient is a 56-year-old, , white femal e with a history of psychoaffective disorder and several repeated psychiatric hospitalizations, who arrived at our hospital due to unresponsive behavior and apparent catatonia, along with inability to eat, drink, or take care of her own basic necessities. It appears that the patient had a fairly pr olonged hospitalization recently at [facility] in [place], [place]. Thereafter, she was discharged to her apartment, but it is unclear whether she was compliant with outpatient treatment. She was brought to the hospital due to symptoms of catatonia, and when first evaluated was unable t o answer questions, but would only stare at the ceiling, blinking her eyes, and not able to eat, dri nk, toilet or bath. HOSPITAL COURSE - PART B: Psychiatric treatment rendered: The patient was readmitted to the [facility] where she was placed on q.30 minute checks for her own safety. We re- initiat ed her medications, including Wellbutrin, Seroquel, Remeron, and aspirin. For DVT prophylaxis she wa s placed on Lovenox. Gradually with engagement, she started interacting with staff, although she re mained somewhat isolative to her room. We were able to increase her Seroquel to 200 in the morning and afternoon and 300 in the evening. We did use prn Ativan when she demonstrated evidence of Catat onia. The patient's condition improved and she was able to start participating in self-care with as sistance from staff. We felt that she would need additional support in terms of improving on her in dependent living skills and for this reason, she was referred to [facility] [place] subacute rehab. The samantha ent is in agreement with this plan and she is also agreeable to following up with [facility] after her time of discharge. [id number]/[facility] #: [id number]
== END 2017-01-08 10:15 | DRG 885 ==
LOC: ED 15:03 → BSU 12-23 14:10
PROVIDERS: ADMIT Internal Medicine; ATTEND Psychiatry & Neurology Psychiatry
PROC: 4A10X4Z Monitoring of Central Nervous Electrical Activity, External Approach (ICD-10-PCS; principal; 2016-12-28)
DX: F25.0 Schizoaffective disorder, bipolar type (principal); E87.8 Other disorders of electrolyte and fluid balance, not elsewhere classified; R47.01 Aphasia; Z91.14 Patient's other noncompliance with medication regimen; E78.5 Hyperlipidemia, unspecified; F41.0 Panic disorder [episodic paroxysmal anxiety]; F31.9 Bipolar disorder, unspecified; K59.09 Other constipation; F60.3 Borderline personality disorder; F21 Schizotypal disorder; E87.6 Hypokalemia; Z86.711 Personal history of pulmonary embolism; Z91.5 Personal history of self-harm; Z87.891 Personal history of nicotine dependence; Z86.718 Personal history of other venous thrombosis and embolism; Z79.82 Long term (current) use of aspirin; Z79.01 Long term (current) use of anticoagulants; Z72.89 Other problems related to lifestyle; Z81.8 Family history of other mental and behavioral disorders
CPT/HCPCS: 36415; 70450; 71010; 80048; 80053; 80061; 80307; 80320; 80329; 81003; 81015; 82550; 83036; 83605; 83735; 84443; 84484; 85014; 85018; 85025; 85049; 85610; 87086; 93005; 95816; 99222; 99231; 99238; A9270-GY; G0480; J1650; J2060

== ENCOUNTER 2017-01-10 10:51 | Emergency (ER) | payer MEDICARE, MEDICAID ==
[2017-01-10] MEDS ORDERED: Ammonia Inhalant* 1 EA AMP INH ONE (11:45)
[2017-01-10 11:52] LABS: Hematocrit 43 % (35-47); Hemoglobin 13.8 g/dl (12.0-16.0); Mean Corpuscular HGB Conc 33 g/dl (31-36); Mean Corpuscular Hemoglobin 30 pg (27-31); Mean Corpuscular Volume 93 fL (80-97); Mean Platelet Volume 9 um3 (7.4-10.4); Red Blood Count 4.56 10^6/ul (4.0-5.4); Red Cell Distribution Width 16 % (10.5-15); White Blood Count 4.9 10^3/ul (3.5-10.8)
[2017-01-10 11:57] LABS: ALT 13 U/L (7-52); AST 12 U/L (13-39); Albumin 3.6 g/dL (3.2-5.2); Alkaline Phosphatase 53 U/L (34-104); Anion Gap 6 mmol/L (2-11); BUN/Creatinine Ratio 12.1 (8-20); Blood Urea Nitrogen 8 mg/dL (6-24); CO2 Carbon Dioxide 26 mmol/L (22-32); Calcium 9.4 mg/dL (8.6-10.3); Chloride 105 mmol/L (101-111); EGFR African American 118.7 (>60); EGFR Non-African American 92.3 (>60); Globulin 3.1 g/dL (2-4); Glucose 97 mg/dL (70-100); Sodium 137 mmol/L (133-145); Total Protein 6.7 g/dL (6.4-8.9)
[2017-01-10 12:04] LABS: Urine Bacteria 1+ (Absent); Urine Bilirubin Negative (Negative); Urine Glucose Negative (Negative); Urine Nitrite Negative (Negative)
[2017-01-10 12:16] LABS: Acetaminophen < 15 mcg/mL; Alcohol < 10 mg/dL (<10); Salicylate < 2.50 mg/dL (<30)
[2017-01-10 12:26] LABS: TSH (Thyroid Stimulating Horm) 0.97 mcIU/mL (0.34-5.60)
[2017-01-10 12:27] LABS: Benzodiazepine Urine Screen None Detected (None Detect)
[2017-01-10] MEDS: Sulfamethox/Trimethoprim DS 800/160* TAB PO ONE ×2 (13:21→14:53)
[2017-01-10 14:54] VITALS: BP 133/85
--- NOTE | 2017-01-10 18:06 | ED ---
Malvin Chen Billy, scribed for Jose Leslie MD on 01/10/17 at 1227 . Complex/Multi-Sys Presentation - HPI Summary HPI Summary: Patient is a 56 year-old female coming to [facility] from [facility]. Patient was discharged on 01/08/17 after being treated for catatonia. Today, patient RUSSELL but is not answering any questions. Level 5 caveat. - History Of Current Complaint Chief Complaint: EDGeneral Time Seen by Provider: 01/10/17 11:06 Hx Obtained From: Medical Records Hx From Patient Unobtainable Due To: Other - level 5 caveat Onset/Duration: Gradual Onset Timing: Constant Severity Currently: Moderate Severity Initially: Moderate Aggravating Factor(s): n/a Alleviating Factor(s): n/a Associated Signs And Symptoms: Positive: Decreased Responsiveness - Allergies/Home Medications Allergies/Adverse Reactions: Allergies Allergy/AdvReac Type Severity Reaction Status Date / Time No Known Allergies Allergy Verified 05/09/16 01:57 Home Medications: Home Medications Polyethylene Glycol 3350* [Miralax*] 17 gm PO Q12H PRN 01/10/17 [History Confirmed 01/10/17] QUEtiapine TAB* [Seroquel TAB*] 200 mg PO 0900,1400,2100 01/10/17 [History Confirmed 01/10/17] hydrOXYzine HCL TAB* [Atarax 25 MG TAB*] 25 mg PO ONCE PRN 01/10/17 [History Confirmed 01/10/17] PMH/Surg Hx/FS Hx/Imm Hx Endocrine/Hematology History: Reports: Hx Anticoagulant Therapy Denies: Hx Anemia, Hx Unexplained Bleeding Cardiovascular History: Reports: Hx Deep Vein Thrombosis - 2000 and 2007, Hx Embolism, Hx Hypercholesterolemia Denies: Hx Aneurysm, Hx Angina, Hx Angioplasty, Hx Auto Implanted Cardiovert Defib, Hx Cardiac Arrest, Hx Cardiomegaly, Hx Congenital Heart Disease, Hx Congestive Heart Failure, Hx Coronary Artery Disease, Hx Hypotension, Hx Hypertension, Hx Pacemaker/ICD, Hx Peripheral Vascular Disease, Hx Rheumatic Fever, Hx Syncope, Hx Valvular Heart Disease, Other Cardiovascular Problems/ Disorders Respiratory History: Reports: Hx Pulmonary Embolism History: Reports: Other Problems/Disorders - History of bladder infection Sensory History: Reports: Hx Contacts or Glasses Denies: Hx Hearing Aid Opthamlomology History: Reports: Hx Contacts or Glasses Neurological History: Reports: Other Neuro Impairments/Disorders - Recently hit head in ED after falling off a stretcher. Psychiatric History: Reports: Hx Panic Disorder, Hx Inpatient Treatment, Hx Community Mental Health Tx, Hx Schizophrenia, Hx Bipolar Disorder, Hx Suicide Attempt - 1982, Hx of Violent Episodes Against Others, Other Psychiatric Issues/ Disorders - SCHIZOAFFECTIVE D/O Denies: Hx Anxiety, Hx Attention Deficit Hyperactivity Disorder, Hx Eating Disorder, Hx Depression, Hx Post Traumatic Stress Disorder, Hx Substance Abuse - Surgical History Surgery Procedure, Year, and Place: TUMOR REMOVED FROM [facility] Infectious Disease History: No Infectious Disease History: Denies: Traveled Outside the [place] in Last 30 Days - Family History Known Family History: Positive: Other - mood d/o, psychotic d/o. - Social History Alcohol Use: None Alcohol Amount: States gave up long ago Hx Substance Use: No Substance Use Type: Reports: None Hx Tobacco Use: Yes Smoking Status (MU): Former Smoker Type: Cigarettes Amount Used/How Often: 3 CIGARETTES/DAY Length of Time of Smoking/Using Tobacco: 20YRS Have You Smoked in the Last Year: Yes Review of Systems All Other Systems Reviewed And Are Negative: No - Comments Additional Review of Systems Comments: Full ROS not available, level 5 caveat. Physical Exam - Summary Physical Exam Summary: Constitutional: Well-developed, Well-nourished, Alert. (-) Distressed. Level 5 caveat. Skin: Warm, Dry HENT: Normocephalic; Atraumatic Eyes: Conjunctiva normal Neck: Musculoskeletal ROM normal neck. (-) JVD, (-) Stridor, (-) Tracheal deviation Cardio: Rhythm regular, rate normal, Heart sounds normal; Intact distal pulses; The pedal pulses are 2+ and symmetric. Radial pulses are 2+ and symmetric. (-) Murmur Pulmonary/Chest wall: Effort normal. (-) Respiratory distress, (-) Wheezes, (-) Rales Abd: Soft, (-) Tenderness, (-) Distension, (-) Guarding, (-) Rebound Musculoskeletal: Muscle tone intact. (-) Edema Lymph: (-) Cervical adenopathy Neuro: Alert but not oriented. Intact gag reflex. Patient resists when we attempt to open her eyes and mouth. She is responsive to external stimuli, and puts her finger out for the pulse oximitry probe. Psych: Not assessed, patient is not verbal at this time. Triage Information Reviewed: Yes Vital Signs On Initial Exam: Initial Vitals Temp Pulse Resp BP Pulse Ox 97.8 F 89 18 129/86 97 01/10/17 10:53 01/10/17 10:53 01/10/17 10:53 01/10/17 10:53 01/10/17 10:53 Vital Signs Reviewed: Yes Completion Of Physical Exam Limited Due To: Level 5 Diagnostics - Vital Signs Vital Signs Temp Pulse Resp BP Pulse Ox 01/10/17 10:53 97.8 F 89 18 129/86 97 - Laboratory Result Diagrams: 01/10/17 11:31 01/10/17 11:31 Lab Statement: Any lab studies that have been ordered have been reviewed, and results considered in the medical decision making process. Re-Evaluation - Re-Evaluation First Eval Re-Evaluation Time: 12:21 Comment: Patient withdrew from the smelling salts and requested that we stop using them. Complex Multi-Symp Course/Dx Assessment/Plan: 56 year-old male female coming to [facility] from shelter facility. UA in the ED was positive for UTI. All labs were reviewed in the ED. [facility] was made aware of the patient's condition, and they are willing to take the patient back. All medications were reviewed this visit. - Diagnoses Provider Diagnoses: UTI (urinary tract infection), Manipulative behavior Discharge - Discharge Plan Condition: Stable Disposition: HOME Prescriptions: Sulfamethox/Trimethoprim DS* [Bactrim DS 800/160 TAB*] 1 tab PO BID #20 tab Patient Education Materials: Urinary Tract Infection in Women (ED) The documentation as recorded by the Malvin meza Billy accurately reflects the service I personally performed and the decisions made by me, Jose Leslie MD.
--- NOTE | 2017-01-13 15:20 | ED ---
Progress - Progress Note Progress Note: Pt's urine cx reveals Aerococcus species - she was started on bactrim and this is not effective against this organism. Spoke w/ Colt RN at [facility] where pt resides. Advised to stop bactrim and start amoxicillin 500mg TID x 7 days - Colt requested a fax with order and pt will have changes made - they have amoxicillin in house so will start change in tx today and send order for additional medications as necessary. Pt needs repeat U/A w/ cx&sens for proof of tx as she appears to be a poor historian/communicator based on note from Dr. Leslie. Re-Evaluation - Re-Evaluation First Eval Re-Evaluation Time: 12:21 Comment: Patient withdrew from the smelling salts and requested that we stop using them. Course/Dx - Diagnoses Provider Diagnoses: UTI (urinary tract infection), Manipulative behavior
== END 2017-01-10 16:20 | disposition home or self-care (01) ==
LOC: ED 10:51
DX: N39.0 Urinary tract infection, site not specified (principal); R46.89 Other symptoms and signs involving appearance and behavior
CPT/HCPCS: 36415; 80053; 80307; 80320; 80329; 81003; 81015; 84443; 85025; 85610; 87077; 87086; 99283; A9270-GY; G0480

== ENCOUNTER 2018-09-15 17:12 | Inpatient (IN) | payer MEDICARE, MEDICAID ==
[2018-09-15] MEDS ORDERED: LORazepam INJ* 2 MG/ML 1 ML VIAL ONE (17:17)
[2018-09-15] MEDS ORDERED: Ziprasidone IM INJ* 20 MG/ML VIAL ONE (17:17)
[2018-09-15] MEDS ORDERED: Ziprasidone IM INJ* 20 MG/ML VIAL IM ONE (17:32)
[2018-09-15] MEDS ORDERED: LORazepam INJ* 2 MG/ML 1 ML VIAL IM ONE (17:32)
--- NOTE | 2018-09-15 17:43 | ED ---
Psychiatric Complaint - HPI Summary HPI Summary: This patient is a 57 year old F brought in by EMS, assisted by state police with a chief complaint of increased agitation, worsening paranoid behaviors, and losing touch with reality for the last few days. The staff at her [facility], which is for disabled, elderly individuals, request admission to the [facility] behavioral unit. Today she took a pair of scissors and ripped up her gown and slippers because she is, tired of them stealing her stuff. The patient was restrained en route. Upon arrival, the patient is combative, hostile, spitting at EMS staff, scratching, and not in touch with reality. She received Geodon and Ativan once she arrived in the ED. The patient states, all the people hate me because the population [place] are insects and canines. She has recently been sent to [place] 3 times, but they always release her after one day stating that she is fine. The medical staff at the [facility] think that treatment at [facility] will be more helpful. The patient states that she wants a pelvic and neuro exam, but gives no reason why. PMHx schizoaffective disorder. - History Of Current Complaint Chief Complaint: EDMentalHealth Hx Obtained From: Patient, EMS, Other: - penitentiary staff Onset/Duration: Sudden Onset, Lasting Days Severity Currently: Severe Character: Frustrated Associated Signs And Symptoms: Positive: Hostile, Paranoid Behavior Related History: Positive For: Prior Psychiatric Issues - Allergies/Home Medications Allergies/Adverse Reactions: Allergies Allergy/AdvReac Type Severity Reaction Status Date / Time No Known Allergies Allergy Verified 05/09/16 01:57 Home Medications: Home Medications Docusate Sodium [Colace] 100 mg PO DAILY 09/15/18 [History Confirmed 09/15/18] PMH/Surg Hx/FS Hx/Imm Hx Endocrine/Hematology History: Reports: Hx Anticoagulant Therapy Denies: Hx Anemia, Hx Unexplained Bleeding Cardiovascular History: Reports: Hx Deep Vein Thrombosis - 2000 and 2007, Hx Embolism, Hx Hypercholesterolemia Denies: Hx Aneurysm, Hx Angina, Hx Angioplasty, Hx Auto Implanted Cardiovert Defib, Hx Cardiac Arrest, Hx Cardiomegaly, Hx Congenital Heart Disease, Hx Congestive Heart Failure, Hx Coronary Artery Disease, Hx Hypotension, Hx Hypertension, Hx Pacemaker/ICD, Hx Peripheral Vascular Disease, Hx Rheumatic Fever, Hx Syncope, Hx Valvular Heart Disease, Other Cardiovascular Problems/ Disorders Respiratory History: Reports: Hx Pulmonary Embolism History: Reports: Other Problems/Disorders - History of bladder infection Sensory History: Reports: Hx Contacts or Glasses Denies: Hx Hearing Aid Opthamlomology History: Reports: Hx Contacts or Glasses Neurological History: Reports: Other Neuro Impairments/Disorders - Recently hit head in ED after falling off a stretcher. Psychiatric History: Reports: Hx Panic Disorder, Hx Inpatient Treatment, Hx Community Mental Health Tx, Hx Schizophrenia, Hx Bipolar Disorder, Hx Suicide Attempt - 1982, Hx of Violent Episodes Against Others, Other Psychiatric Issues/ Disorders - SCHIZOAFFECTIVE D/O Denies: Hx Anxiety, Hx Attention Deficit Hyperactivity Disorder, Hx Eating Disorder, Hx Depression, Hx Post Traumatic Stress Disorder, Hx Substance Abuse - Surgical History Surgery Procedure, Year, and Place: TUMOR REMOVED FROM [facility] Infectious Disease History: No Infectious Disease History: Denies: Traveled Outside the [place] in Last 30 Days - Family History Known Family History: Positive: Other - mood d/o, psychotic d/o. - Social History Alcohol Use: None Alcohol Amount: States gave up long ago Hx Substance Use: No Substance Use Type: Reports: None Hx Tobacco Use: Yes Smoking Status (MU): Former Smoker Type: Cigarettes Amount Used/How Often: 3 CIGARETTES/DAY Length of Time of Smoking/Using Tobacco: 20YRS Have You Smoked in the Last Year: Yes Review of Systems Negative: Fever Neurological: Other - confusion Positive: Other - psychotic, paranoid behaviors, agitation All Other Systems Reviewed And Are Negative: Yes Physical Exam - Summary Physical Exam Summary: VITAL SIGNS: Reviewed. GENERAL: Patient is a well-developed and nourished female who is restrained in the stretcher. Patient is not in any acute respiratory distress. HEAD AND FACE: No signs of trauma. No ecchymosis, hematomas or skull depressions. No sinus tenderness. EYES: PERRLA, EOMI x 2, No injected conjunctiva, no nystagmus. EARS: Hearing grossly intact. Ear canals and tympanic membranes are within normal limits. MOUTH: Oropharynx within normal limits. NECK: Supple, trachea is midline, no adenopathy, no JVD, no carotid bruit, no c- spine tenderness, neck with full ROM. CHEST: Symmetric, no tenderness at palpation LUNGS: Clear to auscultation bilaterally. No wheezing or crackles. CVS: Regular rate and rhythm, S1 and S2 present, no murmurs or gallops appreciated. ABDOMEN: Soft, non-tender. No signs of distention. No rebound no guarding, and no masses palpated. Bowel sounds are normal. EXTREMITIES: FROM in all major joints, no edema, no cyanosis or clubbing. NEURO: Alert and oriented x 3. No acute neurological deficits. The patient is psychotic. SKIN: Dry and warm GCS: 15 Triage Information Reviewed: Yes Vital Signs On Initial Exam: Initial Vitals Temp Pulse Resp BP Pulse Ox 97 F 0 0 00/00 0 09/15/18 17:26 09/15/18 17:26 09/15/18 17:26 09/15/18 17:26 09/15/18 17:26 Vital Signs Reviewed: Yes Diagnostics - Vital Signs Vital Signs Temp Pulse Resp BP Pulse Ox 09/15/18 17:32 24 09/15/18 17:26 97 F 0 0 00/00 0 - Laboratory Result Diagrams: 09/15/18 16:56 09/15/18 16:56 Lab Statement: Any lab studies that have been ordered have been reviewed, and results considered in the medical decision making process. Course/Dx - Course Course Of Treatment: The patient will be signed out by Dr. Ventura to Dr. Bhat, awaiting mental health evaluation and disposition. Assessment/Plan: It is reported by EMS that the patient was ready agitated psychotic therefore the patient was given Versed 5 mg IV. At arrival to the emergency department the patient is less agitated, however the patient has tangential thinking, word salad, unable to understand her thought processes since she is changing from one subject to another very quickly. The patient now is more agitated and uncooperative, psychotic therefore the patient was given Geodon 20 mg IM and Ativan 20 g IM. At this time the patient is resting comfortable and she was placed on a jigmaker. The patient is hemodynamically stable. The patient has passed medical history for DVT for which the patient is taken Xarelto, history of personality, atypical depression , schizotypal personality, schizoaffective disorder bipolar type, and dyslipidemia. At this time the patient is hemodynamically stable. The patient is resting comfortable. Patient will be signed out to Dr. Bhat at shift change for medical clearance and the mental health ablation. - Differential Dx/Clinical Impression Differential Diagnosis/HQI/PQRI: Positive: Acute Psychosis Provider Diagnosis: Psychosis Discharge - Sign-Out/Discharge Documenting (check all that apply): Sign-Out Patient Signing out patient TO: Simi Bhat - Discharge Plan Referrals: Jorge Marquez MD [Primary Care Provider] - - Attestation Statements Document Initiated by Scribe: Yes Documenting Scribe: Jhonny Treadwell Provider For Whom Scribe is Documenting (Include Credential): Vincent Ventura MD Scribe Attestation: I, Jhonny Treadwell, scribed for Vincent Ventura MD on 09/15/18 at 1857. Scribe Documentation Reviewed: Yes Provider Attestation: The documentation as recorded by the Jhonny meza accurately reflects the service I personally performed and the decisions made by me, Vincent Ventura MD Status of Scribe Document: Viewed
[2018-09-15 17:54] LABS: ABS Basophils 0.1 10^3/ul (0-0.2); ABS Eosinophils 0 10^3/ul (0-0.6); ABS Lymphocytes 1.6 10^3/ul (1.0-4.8); ABS Monocytes 0.5 10^3/ul (0-0.8); ABS Neutrophils 3.8 10^3/ul (1.5-7.7); ABS Nucleated RBC 0 10^3/ul; Eosinophil % 0.3 %; Hematocrit 43 % (35-47); Hemoglobin 14.3 g/dl (12.0-16.0); Lymphocyte % 26.7 %; Mean Corpuscular HGB Conc 34 g/dl (31-36); Mean Corpuscular Hemoglobin 31 pg (27-31); Mean Corpuscular Volume 93 fL (80-97); Mean Platelet Volume 7.9 fL (7.4-10.4); Nucleated Red Blood Cells % 0; Platelet Count 270 10^3/ul (150-450); Red Blood Count 4.57 10^6/ul (4.00-5.40); Red Cell Distribution Width 13 % (10.5-15); White Blood Count 6.1 10^3/ul (3.5-10.8)
[2018-09-15 18:18] LABS: ALT 7 U/L (7-52); AST 13 U/L (13-39); Albumin 4.3 g/dL (3.2-5.2); Albumin/Globulin Ratio 1.6 (1-3); Alkaline Phosphatase 58 U/L (34-104); Anion Gap 10 mmol/L (2-11); BUN/Creatinine Ratio 16.2 (8-20); Blood Urea Nitrogen 12 mg/dL (6-24); CO2 Carbon Dioxide 23 mmol/L (22-32); Calcium 9.6 mg/dL (8.6-10.3); Chloride 106 mmol/L (101-111); EGFR African American 97.5 (>60); EGFR Non-African American 80.6 (>60); Globulin 2.7 g/dL (2-4); Glucose 87 mg/dL (70-100); Potassium 3.8 mmol/L (3.5-5.0); Sodium 139 mmol/L (135-145)
[2018-09-15 18:25] LABS: Acetaminophen < 15 mcg/mL; Alcohol < 10 mg/dL (<10); Salicylate < 2.50 mg/dL (<30)
[2018-09-15 18:41] LABS: TSH (Thyroid Stimulating Horm) 1.86 mcIU/mL (0.34-5.60)
--- NOTE | 2018-09-16 06:38 | ED ---
Progress - Progress Note Progress Note: This patient was signed out from Dr. Ventura awaiting MHE and she will be signed out to Dr. Leslie awaiting MHE. Course/Dx - Course Course Of Treatment: This patient was signed out from Dr. Ventura awaiting MHE and she will be signed out to Dr. Leslie awaiting MHE - Diagnoses Provider Diagnoses: Psychosis Discharge - Sign-Out/Discharge Documenting (check all that apply): Sign-Out Patient, Receiving Sign-Out Signing out patient TO: Jose Leslie Receiving patient FROM: Vincent Ventura - Discharge Plan Condition: Fair Disposition: PSYCHIATRIC FACILITY[place] - Billing Disposition and Condition Condition: FAIR Disposition: Psychiatric Facility [facility] - Attestation Statements Document Initiated by Salmaibe: Yes Documenting Scribe: Jack Handy Provider For Whom Yadira is Documenting (Include Credential): Simi Bhat MD Scribe Attestation: Jack Chen , scribed for Simi Bhat MD on 09/16/18 at 1956. Scribe Documentation Reviewed: Yes Provider Attestation: The documentation as recorded by the Jack meza accurately reflects the service I personally performed and the decisions made by Benoit ahn MD Status of Scribe Document: Viewed
--- NOTE | 2018-09-16 06:55 | PN ---
ED Flex Patient Progress Note Subjective: This is a 57 year-old F who is pending admission to [facility] / transfer to another psychiatric facility / discharge to home / or being observed secondary to psychosis. Pt. examined in room 7 at 0720. She is writing a letter. She offers no complaints other than wanting to go over the the B[facility]. Objective: Vitals: Most recent vital signs documented below. General NAD, Alert and oriented x3. Laboratory: Current laboratory results documented below. Assessment: Pending MHE. Plan: Pending psychiatric or medical consultation to observe / transfer / admit / discharge will follow up daily . Vital Signs Temp Pulse Resp BP Pulse Ox 97 F 87 19 101/63 94 09/15/18 17:26 09/15/18 20:03 09/16/18 04:34 09/16/18 04:34 09/15/18 20:03 Lab Results - Entire Visit 09/15/18 09/15/18 16:56 16:56 WBC 6.1 RBC 4.57 Hgb 14.3 Hct 43 MCV 93 MCH 31 MCHC 34 RDW 13 Plt Count 270 MPV 7.9 Neut % (Auto) 62.7 Lymph % (Auto) 26.7 Mclennan % (Auto) 8.3 Eos % (Auto) 0.3 Baso % (Auto) 2.0 Absolute Neuts (auto) 3.8 Absolute Lymphs (auto) 1.6 Absolute Monos (auto) 0.5 Absolute Eos (auto) 0 Absolute Basos (auto) 0.1 Absolute Nucleated RBC 0 Nucleated RBC % 0 Sodium 139 Potassium 3.8 Chloride 106 Carbon Dioxide 23 Anion Gap 10 BUN 12 Creatinine 0.74 Est GFR ( Amer) 97.5 Est GFR (Non-Af Amer) 80.6 BUN/Creatinine Ratio 16.2 Glucose 87 Calcium 9.6 Total Bilirubin 0.40 AST 13 ALT 7 Alkaline Phosphatase 58 Total Protein 7.0 Albumin 4.3 Globulin 2.7 Albumin/Globulin Ratio 1.6 TSH 1.86 Salicylates < 2.50 Acetaminophen < 15 Serum Alcohol < 10
--- NOTE | 2018-09-16 07:10 | ED ---
Progress - Progress Note Progress Note: This patient was signed out from Dr. Bhat to Dr. Leslie upon shift change at 07 :00 09/16/[address] Strange, psych, the patient will be an involuntary admit on a 939. Dx: psychosis NOS. Course/Dx - Course Course Of Treatment: This patient was signed out from Dr. Bhat to Dr. Leslie upon shift change at 07:00 09/16/[address] Strange, psych, the patient will be an involuntary admit on a 939. Dx: psychosis NOS. - Diagnoses Provider Diagnoses: Psychosis - Provider Notifications Discussed Care Of Patient With: Sterling Strange Time Discussed With Above Provider: 09:00 Instructed by Provider To: Admit As Inpatient Discharge - Sign-Out/Discharge Documenting (check all that apply): Patient Departure - Admit - Discharge Plan Condition: Fair Disposition: [place] [place] Billing Disposition and Condition Condition: FAIR Disposition: Psychiatric [place] [facility] - Attestation Statements Document Initiated by Scribe: Yes Documenting Scribe: Lucho Ortiz Provider For Whom Scribe is Documenting (Include Credential): Jose Leslie MD Scribe Attestation: I, Lucho Ortiz, scribed for Jose Leslie MD on 09/16/18 at 1714. Scribe Documentation Reviewed: Yes Provider Attestation: The documentation as recorded by the scribeLucho accurately reflects the service I personally performed and the decisions made by me, Jose Leslie MD Status of Scribe Document: Viewed
[2018-09-16] MEDS: Docusate CAP* 100 MG PO SCH (17:04)
[2018-09-16] MEDS: Rivaroxaban TAB(*) 20 MG TAB PO SCH (17:04)
[2018-09-16] MEDS: QUEtiapine TAB* 100 MG PO SCH ×2 (17:05→21:09)
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
[2018-09-16 17:54] LABS: Urine Appearance Cloudy; Urine Bacteria 3+ (Absent); Urine Bilirubin Negative (Negative); Urine Blood Negative (Negative); Urine Color Yellow; Urine Glucose Negative (Negative); Urine Ketones Negative (Negative); Urine Nitrite Negative (Negative); Urine Protein Negative (Negative); Urine Red Blood Cell Absent (Absent); Urine Specific Gravity 1.004 (1.010-1.030); Urine Squamous Epithelial Cell Present (Absent); Urine Urobilinogen Negative (Negative); Urine White Blood Cell 3+(>20/hpf) (Absent)
[2018-09-16 18:07] LABS: Barbiturates Urine Screen None Detected (None Detect); Benzodiazepine Urine Screen Presumptive Positive (None Detect); Urine Cannabinoids Screen None Detected (None Detect)
[2018-09-16] MEDS: LORazepam TAB(*) 1 MG PO PRN (18:12)
[2018-09-16] MEDS: Acetaminophen TAB* 325 MG PO PRN (19:01)
[2018-09-16] MEDS: Al Hydrox/Mg Hydrox/Simet LIQ* 30 ML UDC PO PRN (19:01)
[2018-09-16] MEDS: Mirtazapine TAB* 15 MG PO SCH (21:09)
[2018-09-17] MEDS: Docusate CAP* 100 MG PO SCH ×2 (10:47→20:26)
[2018-09-17] MEDS: QUEtiapine TAB* 100 MG PO SCH ×3 (10:47→20:24)
[2018-09-17] MEDS: Rivaroxaban TAB(*) 20 MG TAB PO SCH (10:47)
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
[2018-09-17] MEDS ORDERED: Psyllium PAK PO PRN (12:39)
[2018-09-17] MEDS: Acetaminophen TAB* 325 MG PO PRN (14:03)
[2018-09-17] MEDS: LORazepam TAB(*) 1 MG PO PRN ×2 (14:03→20:24)
[2018-09-17] MEDS: Mirtazapine TAB* 15 MG PO SCH (20:27)
[2018-09-18 08:46] LABS: HDL Cholesterol 58.8 mg/dL
[2018-09-18] MEDS: Magnesium Hydroxide LIQ* 30 ML UDC PO PRN ×2 (09:01→20:31)
[2018-09-18] MEDS: LORazepam TAB(*) 1 MG PO PRN (09:03)
[2018-09-18] MEDS ORDERED: Nicotine Inhaler* 10 MG AMP INH PRN (11:11)
[2018-09-18] MEDS ORDERED: Benzocaine/Menthol LOZ* 1 LOZENGE PO PRN (11:11)
[2018-09-18] MEDS ORDERED: Nicotine GUM* 2 MG ONE (11:12)
[2018-09-18] MEDS: Nicotine GUM* 2 MG PO PRN ×4 (11:13→20:33)
--- NOTE | 2018-09-18 11:19 | PN ---
Subjective - Subjective Date of Service: 09/18/18 Service Type: 01445 Hosp care 15 min low complexity Subjective: Ninoska demonstrates no evidence of agitated or assaultive behavior. She steadfastly declines the offer of ABREU antipsychotic medication and insists on taking only 300mg of quetiapine at night. She is calm and mostly cooperative on the unit. She denies SI or HI. She does not endorse delusional beliefs today. Objective - Appearance Appearance: Well Developed/Nourished Dysmorphic Features: No Hygiene: Normal Grooming: Well Kept - Behavior Psychomotor Activities: Normal Exhibits Abnormal Movement: No - Attitude and Relatedness Attitude and Relatedness: Cooperative Eye Contact: Good - Speech Quality: Unpressured Latencies: Normal Quantity: Appropriate - Mood Patient's Decription of Mood: "Good" - Affect Observed Affect: Good Affect Consistent with: Euthymia - Thought Process Patient's Thought Process: Coherent Thought Content: No Passive Wish, No Suicidal Planning, No Homicidal Ideation, No Paranoid Ideation - Sensorium Experiencing Hallucinations: No, Sensorium is Clear Type of Hallucinations: Visual: No, Auditory: No, Command: No - Level of Consciousness Level of Consciousness: Alert Orientation: Yes Intact, Yes Orientated to Time, Yes Orientated to Place, Yes Orientated to Person - Impulse Control Impulse Control: Tenuous - Insight and Judgement Insight and Judgement: Fair - Group Participation Particating in Group Activities: Yes - Medication Management Medication Management Adherence: Partial Assessment - Assessment Merits Inpatient Hospitalization: Consolidate Improvements, Pending Safe DC Plan Inpatient DSM-V Dx: F25.0 Clinical Impression: 57 y.o. , white female with a history of schizoaffective disorder, schizotypal and borderline personality pathology and multiple prior psychiatric hospitalizations sent from [facility] due to agitated, assaultive behavior in the setting of limited med compliance. Plan - Plan Treatment Plan: Name: NINOSKA LUKE Birthdate: 1960 [id number] Patient improving. Will change quetiapine to 300mg PO qhs, per her insistence. Likely does not meet TOO criteria at this time. Release back to [facility] once stable. Continue inpatient stabilization Target September 20 for discharge. Continued Medication Management: Continue Outpt Medication Medications: Current Medications Acetaminophen (Tylenol Tab*) 650 mg PO Q4H PRN PRN Reason: for pain; or Temp >101 F Last Admin: 09/17/18 14:03 Dose: 650 mg Al Hydrox/Mg Hydrox/Simethicone (Maalox Plus*) 30 ml PO Q4H PRN PRN Reason: INDIGESTION Last Admin: 09/16/18 19:01 Dose: 30 ml Docusate Sodium (Colace Cap*) 100 mg PO BEDTIME [facility] Lorazepam (Ativan Tab(*)) 1 mg PO Q6H PRN PRN Reason: ANXIETY Last Admin: 09/18/18 09:03 Dose: 1 mg Magnesium Hydroxide (Milk Of Magnesia Liq*) 30 ml PO Q6H PRN PRN Reason: CONSTIPATION Last Admin: 09/18/18 09:01 Dose: 30 ml Mirtazapine (Remeron Tab*) 15 mg PO BEDTIME [facility] Last Admin: 09/17/18 20:27 Dose: Not Given Nicotine (Nicotine Inhaler*) 10 mg INH Q2H PRN PRN Reason: CRAVING Nicotine Polacrilex (Nicotine Gum*) 2 mg PO Q2H PRN PRN Reason: CRAVING Psyllium Hydrophilic Mucilloid (Metamucil Dean*) 1 pkt PO DAILY PRN PRN Reason: DIARRHEA Quetiapine Fumarate (Seroquel Tab*) 100 mg PO Q6H PRN PRN Reason: AGITATION/ANXIETY Quetiapine Fumarate (Seroquel Tab*) 300 mg PO BEDTIME [facility] Rivaroxaban (Xarelto(*)) 20 mg PO BEDTIME [facility] Throat Lozenges (Chloraseptic Sharri*) 1 sharri PO Q6H PRN PRN Reason: SORE THROAT - Discharge Plan Discharge Plan: Inpatient Hospitalization
--- NOTE | 2018-09-18 12:53 | PN ---
MHU: Group Therapy Note - Service Type Service Type: [id number] Group Psychotherapy - Cognitive Behavioral Group Therapy ( CBT):Patient presented in CBT programming as disorganized and disruptive in discussion and needed repeated redirection to attend to presented materials.
[2018-09-18] MEDS: Docusate CAP* 100 MG PO SCH ×2 (13:00→20:22)
[2018-09-18] MEDS: Rivaroxaban TAB(*) 20 MG TAB PO SCH ×2 (13:00→18:35)
[2018-09-18] MEDS: QUEtiapine TAB* 100 MG PO SCH ×2 (13:00→20:21)
[2018-09-18] MEDS: QUEtiapine TAB* 100 MG PO PRN (13:01)
[2018-09-18] MEDS: Mirtazapine TAB* 15 MG PO SCH (22:15)
[2018-09-19 08:24] VITALS: BP 123/72
[2018-09-19] MEDS: Nicotine GUM* 2 MG PO PRN ×4 (08:48→17:49)
[2018-09-19] MEDS: Al Hydrox/Mg Hydrox/Simet LIQ* 30 ML UDC PO PRN ×2 (08:48→17:48)
[2018-09-19] MEDS: LORazepam TAB(*) 1 MG PO PRN (08:48)
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
[2018-09-19] MEDS: QUEtiapine TAB* 100 MG PO PRN (17:46)
[2018-09-19] MEDS: Rivaroxaban TAB(*) 20 MG TAB PO SCH (17:46)
[2018-09-19] MEDS: Docusate CAP* 100 MG PO SCH (20:18)
[2018-09-19] MEDS: Mirtazapine TAB* 15 MG PO SCH (20:18)
[2018-09-19] MEDS: QUEtiapine TAB* 100 MG PO SCH (20:19)
[2018-09-20] MEDS: QUEtiapine TAB* 100 MG PO PRN (08:53)
[2018-09-20] MEDS: Nicotine GUM* 2 MG PO PRN ×2 (08:53→11:16)
--- NOTE | 2018-09-20 11:23 | PN ---
MHU: Group Therapy Note - Service Type Service Type: [id number] Group Psychotherapy - Cognitive Behavioral Group Therapy ( CBT):Patient presented in CBT programming as disorganized and disruptive in discussion and needed repeated redirection to attend to presented materials.
--- NOTE | 2018-09-20 19:34 | DS ---
DISCHARGE SUMMARY: DATE OF ADMISSION: 09/16/18 DATE OF DISCHARGE: 09/20/18 DISCHARGE DIAGNOSES: As follows: Tracy I: Schizoaffective disorder, bipolar type. Tracy II: Schizotypal and borderline personality disorders. CONDITION AT THE TIME OF DISCHARGE: The patient is calm and cooperative. She has been accepting psychotropic medication. She has been cooperative with treatment. The patient understands that in order to receive a lateral transfer from her current care home to a facility in [place], which is what she desires, she must be cooperative and non-confrontational with staff and peers at the [facility] in [place], [place]. During her hospitalization here, we have seen no evidence of acute agitation or violence towards others. It is notable that the patient has a chronic personality disorder and she does have a tendency to become hostile at times; however, we do not feel that this warrants further involuntary inpatient treatment. These facts have been shared with the staff at [facility] and she remains a resident there and is welcome to return. MENTAL STATUS EXAM AT THE TIME OF DISCHARGE: The patient is an aging white female, appearing to be slightly older than her stated age. She is dressed in a blue button-up sweater with a blue neal skirt. She is calm, cooperative. Speech has a normal rate, tone, and volume. Mood is euthymic with slight affective flattening. Thought process is linear, goal directed. Thought content is significant for her desire to move to a nursing facility in [place], [place]. She denies suicidal or homicidal ideation. She denies auditory or visual hallucinations. Insight and judgment appear to be poor given the fact that she declined use of long-acting injectable antipsychotic medication. Cognitively, she is awake and alert, with what would appear to be an average intellect. LABORATORY DATA: Comprehensive metabolic testing was performed on 09/18/18. It revealed a hemoglobin A1c of 5.6%, triglycerides 63, cholesterol 415, LDL cholesterol 344, HDL cholesterol 58.8. DISCHARGE INSTRUCTIONS: To the patient are as follows: Part A. Medications: The patient is on Colace 100 mg p.o. q.h.s., Remeron 15 mg p.o. q.h.s., Xarelto 20 mg p.o. q.h.s., quetiapine 300 mg p.o. q.h.s., quetiapine 100 mg every 6 hours as a p.r.n. for agitation or anxiety. Part B. Diet is regular. Part C. Activities as tolerated. The patient is a smoker and she is declining the continuation of nicotine replacement products. Instead, we have provided her with the [facility] smoker's toll free number at [phone]. Studies pending at the time of discharge are none. Part D. Followup care: The patient will follow up with the medical personnel at the [facility] in [place], [place]. Part E. Substance abuse followup is non-applicable. HOSPITAL COURSE: Part A. Reason for admission: The patient is a 57-year-old white female with a history of schizoaffective disorder as well as both schizotypal and borderline personality disorders, who was brought to the hospital via ambulance from the [facility] in [place], [place], secondary to agitated psychotic behavior. Apparently, she required restraint en route to the hospital and while in our emergency room , required antipsychotic medication for her behavior. She reported delusions that other residents at [facility] had been removing her personal items from her room. Staff at the care home reported that the patient has been throwing hot water that she had heated in the microwave onto staff and residents alike. The patient had had limited compliance with her medications for the past 5 days. Apparently, Ninoska is accused of ripping up her clothing and shoes with scissors and then using those items as projectiles towards staff and residents resulting in an unsafe environment. She has had numerous previous admissions here [place] [facility] for behavioral and psychotic disturbances. Current stressors include poor medication adherence and paranoid ideation. She is telling me that she wants to live in an assisted living facility in [place], [place], which is a suburb of [place]. She states that there are better services there despite the fact that she has no family or social connections in that area. She has scrolled out several pages of notes relating to things that she is demanding. On examination, she insists that other people are probably in her room at the care home as we speak going through her belongings. Part B. Psychiatric treatment rendered: The patient was admitted on a 9.39 status and placed on q.15 minute checks for her own safety. We continued her outpatient medication regimen including Seroquel 200 mg p.o. t.i.d. Unfortunately, the patient would not adhere with this medication insisting that the quetiapine made her sedated and was intolerable during the morning hours. We were able to negotiate that she take a 300 mg dose solely at night along with p.r.n. administration of 100 mg whenever she experienced anxiety or agitation. The patient adhered to this protocol, and although she was nonparticipatory in groups, she was often social in milieu, generally getting along with peers and staff members. We never did observe any of the agitated, violent behavior that she demonstrated prior to hospitalization. In fact, she was mostly calm and cooperative, seeming to enjoy interactions, particularly with male staff members. We were able to communicate to Ninoska that we are unable to facilitate a transfer to a nursing facility in [place]; however, her best chance of successfully moving would be to work collaboratively with the staff at [facility]. We explained the process of a so-called "lateral transfer" and that this involve [facility] sending documentation regarding the patient's most recent behavior. For this reason, it behoves the patient to be collaborative and cooperative with her providers at [facility]. We were able to reach the [facility]. They felt strongly that the patient required longer-term hospitalization; however, we explained to them that we were not observing behaviors that would warrant further involuntary inpatient treatment. At the time of her discharge, she has been safe on all checks, cooperative, taking medications, and we see no further justification for coercive inpatient treatment. [id number] #: [id number]
== END 2018-09-20 12:50 | disposition home or self-care (01) | DRG 885 ==
LOC: ED 17:12 → BSU 09-16 10:02
PROVIDERS: ADMIT Psychiatry & Neurology Psychiatry; ATTEND Psychiatry & Neurology Psychiatry
PROC: GZHZZZZ Group Psychotherapy (ICD-10-PCS; principal; 2018-09-18)
DX: F25.0 Schizoaffective disorder, bipolar type (principal); F41.0 Panic disorder [episodic paroxysmal anxiety]; R40.2412 Glasgow coma scale score 13-15, at arrival to emergency department; E78.5 Hyperlipidemia, unspecified; F21 Schizotypal disorder; F17.210 Nicotine dependence, cigarettes, uncomplicated; F60.3 Borderline personality disorder; Z91.5 Personal history of self-harm; Z86.711 Personal history of pulmonary embolism; Z86.718 Personal history of other venous thrombosis and embolism; Z81.8 Family history of other mental and behavioral disorders; Z78.1 Physical restraint status; Z91.010 Allergy to peanuts; Z88.0 Allergy status to penicillin; Z91.013 Allergy to seafood; Z91.14 Patient's other noncompliance with medication regimen; Z79.01 Long term (current) use of anticoagulants
CPT/HCPCS: 36415; 80053; 80061; 80307; 80320; 80329; 81003; 81015; 83036; 84443; 85025; 87077; 87086; 87186; 90853; 99222; 99231; 99238; 99283; A9270-GY; G0480; J2060; J3486